=== PATIENT | female | born 1950 | race Caucasian/White ===

== ENCOUNTER 2017-11-10 21:44 | Inpatient (IN) | payer OTHER ==
[~2017-11-10] VITALS: Ht 157.5 cm; Wt 120.5 kg
[~2017-11-10 21:44] MED LIST: ACET325 PO; ALBU3IS INH; ALBU90OI; ALBU90OI INH; ALBU90OI6 INH; ALBU90OI61 INH; AMOCLA875 PO; ASCO500 PO; ASPERCREME76.5 GM; ATOR20 PO; ATOR40TA; ATOR40TA PO; AZIT200SU PO; AZIT250 PO; AZIT500 PO; B COMPLEX PO; BENZ100A PO; BUDE.5 NEB; CALCIUM CITRATE PO; CEFP200 PO; CHOL10002 PO; CLON.2 PO; CLON.3 PO; CYAN1000 PO; DIPATR PO; DOCU100 PO; DULERA 200 MCG/13 GM; DULERA 200 MCG/13 GM INH; DULO60 PO; DULOXETINE HCL60 MG PO; Enulose 2020 G/30 ML PO; FLUO20 PO; FLUSAL2505 INH; FURO40 PO; Flonase 0.05% N16 GM; GABA100 PO; GABA300; GABA300 PO; GABA600 PO; GUAI600T33 PO; IBUP800; IBUP800 PO; INSDET100 SC; LAVAP17G PO; LEVEMIR FL100 UNIT/1 SC; LEVFLO250 PO; LEVFLO500 PO; LEVO750 PO; LISI20; LISI20 PO; LOSA50 PO; MAGOXI400 PO; MECL12.5 PO; MECL25 PO; MELO7.5; METF500C PO; MULVITB&C PO; Mag-G500 MG PO; Milk Of Ma400 MG/5 M; Mucinex1200 MG PO; NICO14TP TOP; NICO2 PO; NICO21TP TD; NICO21TP TOP; NYST100TC TOP; NYSTOP; NYSTRI30T TOP; NYSTRITC; NYSTRITC TOP; Nicoderm Cq1 EAC1 TOP; Non-Aspirin Ex500 M1; Novolog Fl100 UNIT/1 INJ; OMEP40CA12 PO; OXYACE7.5T PO; OXYB5; OXYB5 PO; Omeprazole20 M1 PO; PANT40 PO; POTCHL10ER PO; POTCHL20ER PO; PRED10; PRED10 PO; PRED20 PO; PROBIOTIC1 EAC1 PO; PROM25 PO; Prednisone20 MG PO; Prilosec20 MG PO; SIME80CH PO; SODCHL.65S; TIOT18 IH; TIOT18 INH; TRAM50 PO; VERA120ERB; VERA180ER; VERA180ER PO; VERA180ERB PO; VERA240ER PO; VIT C PO; Ventolin Soln3 ML INH; [UNRECOGNIZED DRUG - CODE]
[2017-11-10 22:07] LABS: BASOPHILS ABSOLUTE AUTO 0.07 K/mm3 (0.00-0.23); BASOPHILS PERCENT AUTO 0 % (0-2); EOSINOPHILS ABSOLUTE AUTO 0.54 K/mm3 (0.00-0.68); EOSINOPHILS PERCENT AUTO 3 % (0-6); Hematocrit 45.3 % (33.0-51.0); Hemoglobin 13.5 g/dL (11.5-16.0); IMMATURE GRAN ABSOLUTE AUTO 0.07 K/mm3 (0.00-0.10); IMMATURE GRAN PERCENT AUTO 0 % (0-1); LYMPHOCYTES PERCENT AUTO 31 % (21-46); MONOCYTES ABSOLUTE AUTO 0.75 K/mm3 (0.16-1.47); MONOCYTES PERCENT AUTO 4 % (4-13); Mean Corpuscular HGB 27.9 pg (26.0-34.0); Mean Corpuscular HGB Conc 29.8 g/dL (31.5-36.5); Mean Corpuscular Volume 94 fL (80-100); Mean Platelet Volume 10.9 fL (9.1-12.4); NEUTROPHILS ABSOLUTE AUTO 11.09 K/mm3 (1.96-9.15); NEUTROPHILS PERCENT AUTO 62 % (41-73); Platelet Count 332 K/mm3 (150-400); RDW Coefficient Variation 15.8 % (11.7-14.2); RDW Standard Deviation 54.3 fL (35.1-46.3); Red Blood Cell Count 4.84 M/mm3 (3.80-5.20); White Blood Cell Count 18.02 K/mm3 (4.00-11.30)
[2017-11-10 22:26] LABS: Alanine Aminotransfer (ALT/SGP 12 U/L (12-78); Albumin, Blood 2.6 g/dL (3.4-5.0); Albumin/Globulin Ratio 0.4 (0.8-1.8); Alk Phos 113 U/L (50-136); Anion Gap 10 mmol/L (6-16); Aspartate Aminotrans (AST/SGOT 15 U/L (12-37); Bilirubin, Total 0.2 mg/dL (0.1-1.0); Blood Urea Nitrogen 10 mg/dL (8-24); Bun/Creatinine Ratio 13.1 (12.0-20.0); CO2, Blood 32 mmol/L (21-32); Calcium, Blood 7.1 mg/dL (8.5-10.1); Chloride, Blood 99 mmol/L (98-108); Creatinine, Blood 0.76 mg/dL (0.40-1.00); Globulin, Blood 6.3 g/dL (2.2-4.0); Glomerular Filtration Rate >60 (60-); Glucose, Blood 150 mg/dL (70-99); Potassium, Blood 3.7 mmol/L (3.5-5.5); Sodium, Blood 141 mmol/L (136-145); Total Protein, Blood 8.9 g/dL (6.4-8.2)
[2017-11-11 03:59] LABS: BASOPHILS ABSOLUTE AUTO 0.03 K/mm3 (0.00-0.23); BASOPHILS PERCENT AUTO 0 % (0-2); EOSINOPHILS PERCENT AUTO 0 % (0-6); Hematocrit 42.6 % (33.0-51.0); Hemoglobin 12.9 g/dL (11.5-16.0); Mean Corpuscular HGB 28.6 pg (26.0-34.0); Mean Corpuscular HGB Conc 30.3 g/dL (31.5-36.5); Mean Corpuscular Volume 95 fL (80-100); Mean Platelet Volume 11.1 fL (9.1-12.4); Platelet Count 299 K/mm3 (150-400); RDW Coefficient Variation 15.8 % (11.7-14.2); RDW Standard Deviation 54.7 fL (35.1-46.3); Red Blood Cell Count 4.51 M/mm3 (3.80-5.20); White Blood Cell Count 14.72 K/mm3 (4.00-11.30)
[2017-11-11 04:02] LABS: IMMATURE GRAN ABSOLUTE AUTO 0.06 K/mm3 (0.00-0.10); IMMATURE GRAN PERCENT AUTO 0 % (0-1); LYMPHOCYTES PERCENT AUTO 5 % (21-46); MONOCYTES ABSOLUTE AUTO 0.06 K/mm3 (0.16-1.47); MONOCYTES PERCENT AUTO 0 % (4-13); NEUTROPHILS ABSOLUTE AUTO 13.87 K/mm3 (1.96-9.15); NEUTROPHILS PERCENT AUTO 94 % (41-73)
[2017-11-11 04:16] LABS: Influenza A Negative (NEGATIVE); Influenza B Negative (NEGATIVE)
[2017-11-11 04:22] LABS: Alanine Aminotransfer (ALT/SGP 11 U/L (12-78); Albumin, Blood 2.5 g/dL (3.4-5.0); Albumin/Globulin Ratio 0.4 (0.8-1.8); Alk Phos 105 U/L (50-136); Anion Gap 7 mmol/L (6-16); Aspartate Aminotrans (AST/SGOT 14 U/L (12-37); Bilirubin, Total 0.3 mg/dL (0.1-1.0); Blood Urea Nitrogen 9 mg/dL (8-24); Bun/Creatinine Ratio 12.8 (12.0-20.0); CO2, Blood 31 mmol/L (21-32); Calcium, Blood 6.9 mg/dL (8.5-10.1); Chloride, Blood 102 mmol/L (98-108); Globulin, Blood 5.8 g/dL (2.2-4.0); Glomerular Filtration Rate >60 (60-); Glucose, Blood 172 mg/dL (70-99); Potassium, Blood 3.6 mmol/L (3.5-5.5); Sodium, Blood 140 mmol/L (136-145); Total Protein, Blood 8.3 g/dL (6.4-8.2)
[2017-11-14] MEDS ORDERED: OXYB5 PO (12:09)
[2017-11-15 06:33] LABS: BASOPHILS ABSOLUTE AUTO 0.01 K/mm3 (0.00-0.23); BASOPHILS PERCENT AUTO 0 % (0-2); EOSINOPHILS ABSOLUTE AUTO 0.04 K/mm3 (0.00-0.68); EOSINOPHILS PERCENT AUTO 0 % (0-6); Hematocrit 40.8 % (33.0-51.0); Hemoglobin 12.1 g/dL (11.5-16.0); IMMATURE GRAN ABSOLUTE AUTO 0.11 K/mm3 (0.00-0.10); IMMATURE GRAN PERCENT AUTO 1 % (0-1); LYMPHOCYTES ABSOLUTE AUTO 3.35 K/mm3 (0.84-5.20); LYMPHOCYTES PERCENT AUTO 26 % (21-46); MONOCYTES ABSOLUTE AUTO 0.95 K/mm3 (0.16-1.47); MONOCYTES PERCENT AUTO 7 % (4-13); Mean Corpuscular HGB Conc 29.7 g/dL (31.5-36.5); Mean Corpuscular Volume 94 fL (80-100); Mean Platelet Volume 10.7 fL (9.1-12.4); NEUTROPHILS ABSOLUTE AUTO 8.45 K/mm3 (1.96-9.15); NEUTROPHILS PERCENT AUTO 65 % (41-73); Platelet Count 251 K/mm3 (150-400); RDW Coefficient Variation 16.1 % (11.7-14.2); RDW Standard Deviation 56.8 fL (35.1-46.3); Red Blood Cell Count 4.32 M/mm3 (3.80-5.20); White Blood Cell Count 12.91 K/mm3 (4.00-11.30)
[2017-11-15 06:57] LABS: Albumin, Blood 2.3 g/dL (3.4-5.0); Anion Gap 2 mmol/L (6-16); Blood Urea Nitrogen 17 mg/dL (8-24); Bun/Creatinine Ratio 23.7 (12.0-20.0); CO2, Blood 38 mmol/L (21-32); Chloride, Blood 102 mmol/L (98-108); Creatinine, Blood 0.72 mg/dL (0.40-1.00); Glomerular Filtration Rate >60 (60-); Glucose, Blood 80 mg/dL (70-99); Magnesium, Blood 1.5 mg/dL (1.6-2.4); Phosphorus, Blood 2.5 mg/dL (2.5-4.9); Potassium, Blood 3.9 mmol/L (3.5-5.5); Sodium, Blood 142 mmol/L (136-145)
[2017-11-17] MEDS ORDERED: PRED20 PO (10:40)
[2017-11-17] MEDS ORDERED: VERA180ER PO (10:42)
[2017-11-17] MEDS ORDERED: TRAM50 PO (10:42)
[2017-11-17] MEDS ORDERED: GUAI600T33 PO (10:43)
[2017-11-17] MEDS ORDERED: FLONASE ALLERG9.9 ML (10:48)
[2017-11-17] MEDS ORDERED: ACIDOPHILUS LA1 EACH PO (10:49)
[2017-11-17] MEDS ORDERED: MAGNESIUM400 MG PO (10:50)
[2017-11-17] MEDS ORDERED: LEVFLO500 PO (10:50)
== END 2017-11-17 11:59 | disposition home health service (06) | DRG 189 ==
LOC: ER 21:44 → ICUW 23:32 → MEDS 11-11 01:24 → ICUW 11-11 08:40 → MEDS 11-11 12:57 → ENPENDDIS 11-17 10:00 → MEDS 11-17 11:59
PROVIDERS: Emergency Medicine; Internal Medicine
DX: J96.22 Acute and chronic respiratory failure with hypercapnia (principal); J44.1 Chronic obstructive pulmonary disease with (acute) exacerbation; Z68.42 Body mass index [BMI] 45.0-49.9, adult; J96.21 Acute and chronic respiratory failure with hypoxia; E11.9 Type 2 diabetes mellitus without complications; I10 Essential (primary) hypertension; G47.33 Obstructive sleep apnea (adult) (pediatric); I27.20 Pulmonary hypertension, unspecified; E66.01 Morbid (severe) obesity due to excess calories; F17.210 Nicotine dependence, cigarettes, uncomplicated
CPT/HCPCS: 36415; 71045; 71250; 80053; 80069; 82947; 83605; 83735; 83880; 84145; 85025; 87040; 87070; 87077; 87186; 87205; 87804; 93005; 93010; 94640; 94760; 94762; 96365; 96367; 96375; 97161; 97530; 99285; G8978; G8979; G8980; J0456; J0696; J1650; J1940; J1956; J2930; J7030; J7050

== ENCOUNTER 2018-07-23 18:29 | Observation (INO) | payer OTHER ==
[~2018-07-23] VITALS: Ht 160 cm; Wt 119.1 kg
[~2018-07-23 18:29] MED LIST changes: +ACIDOPHILUS LA1 EACH PO; +ACYC800 PO; +ALPR.25 PO; +AMOCLA500 PO; +AUGMENTIN PO; +BISA10S PR; +Culturelle1 CAP PO; +DEEP SEA44 ML; +FLONASE ALLERG9.9 ML; +HYDR10 PO; +MAGNESIUM400 MG PO; +ONDA4 PO; +ONDA4ODT MM; -POTCHL10ER PO; +Pedi-Dri 100,0060 GM TOP; +Ventolin/Prove6.7 GM INH
[2018-07-23 19:23] LABS: BASOPHILS ABSOLUTE AUTO 0.08 K/mm3 (0.00-0.23); BASOPHILS PERCENT AUTO 1 % (0-2); EOSINOPHILS ABSOLUTE AUTO 0.19 K/mm3 (0.00-0.68); EOSINOPHILS PERCENT AUTO 1 % (0-6); Hematocrit 49.9 % (33.0-51.0); Hemoglobin 14.9 g/dL (11.5-16.0); IMMATURE GRAN ABSOLUTE AUTO 0.08 K/mm3 (0.00-0.10); IMMATURE GRAN PERCENT AUTO 1 % (0-1); LYMPHOCYTES ABSOLUTE AUTO 4.39 K/mm3 (0.84-5.20); LYMPHOCYTES PERCENT AUTO 25 % (21-46); MONOCYTES ABSOLUTE AUTO 0.95 K/mm3 (0.16-1.47); MONOCYTES PERCENT AUTO 5 % (4-13); Mean Corpuscular HGB Conc 29.9 g/dL (31.5-36.5); Mean Corpuscular Volume 97 fL (80-100); Mean Platelet Volume 10.6 fL (9.1-12.4); NEUTROPHILS ABSOLUTE AUTO 11.96 K/mm3 (1.96-9.15); NEUTROPHILS PERCENT AUTO 68 % (41-73); Platelet Count 286 K/mm3 (150-400); RDW Coefficient Variation 15.2 % (11.7-14.2); RDW Standard Deviation 54.3 fL (35.1-46.3); Red Blood Cell Count 5.13 M/mm3 (3.80-5.20); White Blood Cell Count 17.65 K/mm3 (4.00-11.30)
[2018-07-23 19:41] LABS: Alanine Aminotransfer (ALT/SGP 13 U/L (12-78); Albumin, Blood 3.1 g/dL (3.4-5.0); Albumin/Globulin Ratio 0.6 (0.8-1.8); Alk Phos 114 U/L (50-136); Anion Gap 7 mmol/L (6-16); Aspartate Aminotrans (AST/SGOT 17 U/L (12-37); Bilirubin, Total 0.3 mg/dL (0.1-1.0); Blood Urea Nitrogen 10 mg/dL (8-24); Bun/Creatinine Ratio 12.1 (12.0-20.0); CO2, Blood 33 mmol/L (21-32); Calcium, Blood 8.9 mg/dL (8.5-10.1); Chloride, Blood 97 mmol/L (98-108); Creatinine, Blood 0.82 mg/dL (0.40-1.00); Glomerular Filtration Rate >60 (60-); Glucose, Blood 119 mg/dL (70-99); Sodium, Blood 137 mmol/L (136-145); Total Protein, Blood 8.1 g/dL (6.4-8.2); Troponin I 0.029 ng/mL (0.000-0.040)
[2018-07-23 20:32] LABS: PCO2 Arterial 62.1 mmHg (35-45); PO2 Arterial 59.7 mmHg (80-100); pH Blood Arterial 7.38 (7.35-7.45)
[2018-07-23] MEDS ORDERED: GUAI600T33 PO (22:39)
[2018-07-23] MEDS ORDERED: DOXY100T53 PO (22:40)
[2018-07-23] MEDS ORDERED: GABA300 PO (22:42)
[2018-07-23] MEDS ORDERED: FURO40 PO (22:43)
--- NOTE | 2018-07-24 01:50 | NUR ---
LACTIC OF 2.4: DR STRATTON NOTIFIED OF LACTIC LEVEL. DR STRATTON STATED HE WOULD REVIEW THE PATIENT'S CHART AND ENTER ORDERS IF HE FELT THEY WERE NEEDED.
[2018-07-24 04:14] LABS: Hematocrit 49.1 % (33.0-51.0); Hemoglobin 14.2 g/dL (11.5-16.0); Mean Corpuscular HGB 28.6 pg (26.0-34.0); Mean Corpuscular HGB Conc 28.9 g/dL (31.5-36.5); Mean Corpuscular Volume 99 fL (80-100); Mean Platelet Volume 10.3 fL (9.1-12.4); Platelet Count 254 K/mm3 (150-400); RDW Coefficient Variation 15.2 % (11.7-14.2); Red Blood Cell Count 4.97 M/mm3 (3.80-5.20); White Blood Cell Count 10.23 K/mm3 (4.00-11.30)
[2018-07-24 04:21] LABS: Anion Gap 8 mmol/L (6-16); Blood Urea Nitrogen 14 mg/dL (8-24); Bun/Creatinine Ratio 16.2 (12.0-20.0); CO2, Blood 33 mmol/L (21-32); Calcium, Blood 8.9 mg/dL (8.5-10.1); Chloride, Blood 99 mmol/L (98-108); Creatinine, Blood 0.87 mg/dL (0.40-1.00); Glomerular Filtration Rate >60 (60-); Glucose, Blood 148 mg/dL (70-99); Potassium, Blood 3.9 mmol/L (3.5-5.5); Sodium, Blood 140 mmol/L (136-145)
--- NOTE | 2018-07-24 06:24 | NUR ---
LACTIC OF 2.5: DR STRATTON NOTIFIED OF THE LACTIC OF 2.5 THIS MORNING. NO ORDERS GIVEN AT THIS TIME.
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
[2018-07-24] MEDS ORDERED: ATOR10 PO (08:05)
[2018-07-24] MEDS ORDERED: Voltaren100 GM TOP (08:08)
[2018-07-24] MEDS ORDERED: DULO60 PO (08:12)
[2018-07-24] MEDS ORDERED: NYSTRITC TOP (08:13)
[2018-07-24] MEDS ORDERED: OMEPRAZOLE MAGN20 MG PO (08:14)
[2018-07-24] MEDS ORDERED: SANTYL30 GM TOP (08:19)
[2018-07-24] MEDS ORDERED: CLOBET30L TOP (08:22)
[2018-07-24] MEDS ORDERED: Silvadene20 GM TOP (08:24)
--- NOTE | 2018-07-24 09:30 | NUR ---
PT PLEASANT COOP A.O. PAIN IN LEG AND BACK IS SAME, JUST MEDICATED ON NITE SHIFT. WILL FOLLOW. H/R REG, NO MURMER NOTED. PER TELE NSR WITH PAC'S AND PVC'S, RATE MID 90'S TO 102 LUNGS INSP WHEEZES WITH LIGHT COARSE T/O. ON 6L O2. N/C. TALKING 5-6 WORD SENTENCES AT THIS TIME. RESP LIGHTLY LABORED. BT X4 LAST BM YEST SOFT. VOIDS 1 ASST TO BATHROOM. BED IN LOW POSITOIN, CALL LITE IN REACH, CALLS APPROP
--- NOTE | 2018-07-24 15:04 | NUR ---
CALLED REPORT TO MEDICAL RN. WILL SHIP PT SHORTLY
--- NOTE | 2018-07-24 16:01 | NUR ---
PT HAS Gregory WALKER RESTING FOR THIS AFT. JUST GOT UP FOR PT. SHE GOT IN DISTRESS CALLED RT. AND CHARGE. BREATHING TREATMENT GIVEN. MOVED O2 TO MOUTH FOR SHORT TIME. RESPIRATIONS ARE CALMING DOWN NOW. XANAX GIVEN. PT BEGINNING TO RELAX. SITTING IN WHEELCHAIR AT THIS TIME. PT RESP NOW AT 20.
--- NOTE | 2018-07-24 16:56 | NUR ---
PATIENT TRANSFERRED TO ROOM 362. REPORT RECEIVED FROM JANETH VILLALBA IN PCU. PATIENT IS A/OX4, TRANSFERRED TO FROM W/C TO BED WITH 2 ASSIST. 6LO2 TO MAINTAIN SATS. REPORTS 10/10 PAIN TO R FOOT, MEDICATED WITH TRAMADOL. CBG 155, NO COVERAGE NEEDED. ORIENTED TO ROOM, USE OF CALL LIGHT. FALL PRECAUTIONS IN PLACE PER UNIT PROTOCOL AND PATIENT EDUCATED ABOUT SAFETY.
[2018-07-24 21:28] LABS: Adenovirus Not Detected (NOT DETECT); Bordetella pertussis Not Detected (NOT DETECT); Chlamydophila pneumoniae Not Detected (NOT DETECT); Coronavirus 229E Not Detected (NOT DETECT); Coronavirus HKU1 Not Detected (NOT DETECT); Coronavirus NL63 Not Detected (NOT DETECT); Coronavirus OC43 Not Detected (NOT DETECT); Human Metapneumovirus Not Detected (NOT DETECT); Human Rhinovirus/Enterovirus Not Detected (NOT DETECT); Influenza A Not Detected (NOT DETECT); Influenza A/2009-H1 Not Detected (NOT DETECT); Influenza A/H1 Not Detected (NOT DETECT); Influenza A/H3 Not Detected (NOT DETECT); Influenza B Not Detected (NOT DETECT); Mycoplasma pneumoniae Not Detected (NOT DETECT); Parainfluenza Virus 1 Not Detected (NOT DETECT); Parainfluenza Virus 2 Not Detected (NOT DETECT); Parainfluenza Virus 3 Not Detected (NOT DETECT); Parainfluenza Virus 4 Not Detected (NOT DETECT); Respiratory Syncytial Virus Not Detected (NOT DETECT)
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
--- NOTE | 2018-07-25 13:44 | NUR ---
Reviewed patient case with [facility]. Discussed difficult living situation: pt lives in 19 foot RV in [place], still smokes even though she has COPD. He states that the patient is very high risk for readmission due to lifestyle and resistence to changing lifestyle to be a healthier individual. Concern for patient's return to the hospital for same complaints noted.
--- NOTE | 2018-07-25 15:55 | NUR ---
PATIENT D/C'D HOMW WITH [employer]. PAPERS FAXED TO [employer]. D/C INSTRUCTIONS AND EDUCATION DISCUSSED WITH PATIENT AND COPY PROVIDED. RX MEDICATIONS FAXED TO [facility] IN [place]. SCRIPT GIVEN FOR BSC AT PATIENT REQUEST.
== END 2018-07-25 15:57 | disposition home or self-care (01) ==
LOC: ER 18:29 → PCU 21:13 → MEDS 21:13 → PCU 21:49 → MEDS 07-24 16:31 → ENPENDDIS 07-25 11:36 → MEDS 07-25 15:57
PROVIDERS: Emergency Medicine; Hospitalist; Nurse Practitioner Acute Care; ADMIT Internal Medicine
DX: J44.1 Chronic obstructive pulmonary disease with (acute) exacerbation (principal); R65.20 Severe sepsis without septic shock; J96.21 Acute and chronic respiratory failure with hypoxia; E11.621 Type 2 diabetes mellitus with foot ulcer; L97.519 Non-pressure chronic ulcer of other part of right foot with unspecified severity; I10 Essential (primary) hypertension; J84.9 Interstitial pulmonary disease, unspecified; F41.9 Anxiety disorder, unspecified; F32.9 Major depressive disorder, single episode, unspecified; E66.01 Morbid (severe) obesity due to excess calories; I27.20 Pulmonary hypertension, unspecified; G47.33 Obstructive sleep apnea (adult) (pediatric); J96.12 Chronic respiratory failure with hypercapnia; E11.40 Type 2 diabetes mellitus with diabetic neuropathy, unspecified; K21.9 Gastro-esophageal reflux disease without esophagitis; E78.5 Hyperlipidemia, unspecified; M19.90 Unspecified osteoarthritis, unspecified site; F17.210 Nicotine dependence, cigarettes, uncomplicated; Z99.81 Dependence on supplemental oxygen; Z99.89 Dependence on other enabling machines and devices; Z79.899 Other long term (current) drug therapy; Z79.52 Long term (current) use of systemic steroids; Z79.4 Long term (current) use of insulin; Z88.8 Allergy status to other drugs, medicaments and biological substances; Z68.42 Body mass index [BMI] 45.0-49.9, adult; A41.9 Sepsis, unspecified organism
CPT/HCPCS: 36415; 36600; 71046; 80048; 80053; 82803; 82947; 83605; 83880; 84145; 84484; 85025; 85027; 87040; 87486; 87581; 87633; 87798; 93005; 93010; 94640; 94760; 96365; 96372; 96375; 97163; 97530; 99285-25; G0378; J1100; J1650; J1956; J2930

== ENCOUNTER 2018-07-26 10:43 | Inpatient (IN) | payer OTHER ==
[~2018-07-26] VITALS: Ht 157.5 cm; Wt 119.5 kg
[~2018-07-26 10:43] MED LIST changes: +ATOR10 PO; +CLOBET30L TOP; +DOXY100T53 PO; +OMEPRAZOLE MAGN20 MG PO; +SANTYL30 GM TOP; +Silvadene20 GM TOP; +Voltaren100 GM TOP
[2018-07-26 11:22] LABS: BASOPHILS ABSOLUTE AUTO 0.03 K/mm3 (0.00-0.23); BASOPHILS PERCENT AUTO 0 % (0-2); EOSINOPHILS ABSOLUTE AUTO 0.03 K/mm3 (0.00-0.68); EOSINOPHILS PERCENT AUTO 0 % (0-6); Hematocrit 46.4 % (33.0-51.0); Hemoglobin 13.9 g/dL (11.5-16.0); IMMATURE GRAN ABSOLUTE AUTO 0.09 K/mm3 (0.00-0.10); IMMATURE GRAN PERCENT AUTO 1 % (0-1); LYMPHOCYTES ABSOLUTE AUTO 3.82 K/mm3 (0.84-5.20); LYMPHOCYTES PERCENT AUTO 22 % (21-46); MONOCYTES ABSOLUTE AUTO 1.21 K/mm3 (0.16-1.47); MONOCYTES PERCENT AUTO 7 % (4-13); Mean Corpuscular HGB 28.8 pg (26.0-34.0); Mean Platelet Volume 10.8 fL (9.1-12.4); NEUTROPHILS ABSOLUTE AUTO 12.21 K/mm3 (1.96-9.15); NEUTROPHILS PERCENT AUTO 70 % (41-73); Platelet Count 305 K/mm3 (150-400); RDW Coefficient Variation 15.8 % (11.7-14.2); RDW Standard Deviation 55.8 fL (35.1-46.3); Red Blood Cell Count 4.83 M/mm3 (3.80-5.20); White Blood Cell Count 17.39 K/mm3 (4.00-11.30)
[2018-07-26 11:35] LABS: Alanine Aminotransfer (ALT/SGP 12 U/L (12-78); Albumin, Blood 2.9 g/dL (3.4-5.0); Albumin/Globulin Ratio 0.6 (0.8-1.8); Alk Phos 103 U/L (50-136); Anion Gap 6 mmol/L (6-16); Aspartate Aminotrans (AST/SGOT 18 U/L (12-37); Bilirubin, Total 0.5 mg/dL (0.1-1.0); Blood Urea Nitrogen 22 mg/dL (8-24); Bun/Creatinine Ratio 25.3 (12.0-20.0); CO2, Blood 33 mmol/L (21-32); Calcium, Blood 8.9 mg/dL (8.5-10.1); Chloride, Blood 102 mmol/L (98-108); Creatinine, Blood 0.87 mg/dL (0.40-1.00); Globulin, Blood 4.5 g/dL (2.2-4.0); Glomerular Filtration Rate >60 (60-); Glucose, Blood 113 mg/dL (70-99); Potassium, Blood 3.9 mmol/L (3.5-5.5); Sodium, Blood 141 mmol/L (136-145); Total Protein, Blood 7.4 g/dL (6.4-8.2); Troponin I 0.078 ng/mL (0.000-0.040)
[2018-07-26 11:38] LABS: Mean Corpuscular Volume 96 fL (80-100)
--- NOTE | 2018-07-26 15:30 | NUR ---
PT WEARING HARD BOOT TO RIGHT FOOT THAT MOBILE ELECTRONICS INSTALLER IS MANAGING. DISCUSSED WITH DR MILLER AND OINTMENTS DISCONTINUED UNTIL PODIATRY ABLE TO SEE PT.
[2018-07-26 15:54] LABS: Troponin I 0.072 ng/mL (0.000-0.040)
[2018-07-26 15:57] LABS: Thyroid Stimulating Hormone 0.95 uIU/mL (0.360-4.800)
[2018-07-26 16:44] LABS: Influenza A Negative (NEGATIVE); Influenza B Negative (NEGATIVE)
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
--- NOTE | 2018-07-27 05:43 | NUR ---
SHIFT SUMMARY: PT IS ALERT AND ORIENTED. PT ANXIOUS AT THE START OF SHIFT, GAVE PRN XANAX. PT IS A 2 PERSON ASSIST, NOT OUT OF BED OVERNIGHT, USED THE BED LAKE. PT INTERMITTENTLY SOB, O2 @ 7 L VIA OXIMIZER, RESP TREATMENTS PRN. PT REPORTS BACK PAIN, MEDICATING PER EMAR. PT DENIES NAUSEA AND VOMITING. PT CALLS APPROPRIATELY. PT OUT TO HAVE CHEST XRAY THIS AM. NO ACUTE CHANGES OVERNIGHT. WILL REPORT TO DAY NURSE.
[2018-07-27 08:12] LABS: BASOPHILS ABSOLUTE AUTO 0.02 K/mm3 (0.00-0.23); BASOPHILS PERCENT AUTO 0 % (0-2); EOSINOPHILS PERCENT AUTO 0 % (0-6); Hematocrit 44.6 % (33.0-51.0); Hemoglobin 12.5 g/dL (11.5-16.0); IMMATURE GRAN ABSOLUTE AUTO 0.14 K/mm3 (0.00-0.10); IMMATURE GRAN PERCENT AUTO 1 % (0-1); LYMPHOCYTES ABSOLUTE AUTO 1.26 K/mm3 (0.84-5.20); LYMPHOCYTES PERCENT AUTO 8 % (21-46); MONOCYTES ABSOLUTE AUTO 0.64 K/mm3 (0.16-1.47); MONOCYTES PERCENT AUTO 4 % (4-13); Mean Corpuscular HGB 28.8 pg (26.0-34.0); Mean Platelet Volume 10.5 fL (9.1-12.4); NEUTROPHILS ABSOLUTE AUTO 12.89 K/mm3 (1.96-9.15); NEUTROPHILS PERCENT AUTO 86 % (41-73); Platelet Count 237 K/mm3 (150-400); RDW Coefficient Variation 15.8 % (11.7-14.2); RDW Standard Deviation 60.6 fL (35.1-46.3); Red Blood Cell Count 4.34 M/mm3 (3.80-5.20); White Blood Cell Count 14.95 K/mm3 (4.00-11.30)
[2018-07-27 08:13] LABS: Mean Corpuscular Volume 103 fL (80-100)
[2018-07-27 08:27] LABS: Anion Gap 4 mmol/L (6-16); Blood Urea Nitrogen 15 mg/dL (8-24); Bun/Creatinine Ratio 24.3 (12.0-20.0); CO2, Blood 32 mmol/L (21-32); Calcium, Blood 7.8 mg/dL (8.5-10.1); Chloride, Blood 106 mmol/L (98-108); Creatinine, Blood 0.62 mg/dL (0.40-1.00); Glomerular Filtration Rate >60 (60-); Glucose, Blood 127 mg/dL (70-99); Potassium, Blood 4.6 mmol/L (3.5-5.5); Sodium, Blood 142 mmol/L (136-145)
[2018-07-27 14:30] LABS: Vancomycin, Trough 15.2 ug/mL (5.0-10.0)
--- NOTE | 2018-07-27 18:40 | NUR ---
SHIFT SUMMARY- PT C/O GENERALIZED PAIN THIS AM. MEDS GIVEN PER EMAR. PT DENIES N/V. REPORTS MILD SOB AT REST DYSPNEA UPON ACTIVITY. RESP LABORED AND EVEN ON 8L O2 OXIMIZER. NSR AT 84 PER PCU CRIMINAL JUSTICE FACULTY. BEDREST AT THIS TIME. TURNS Q2H. CARBONATION EQUIPMENT TENDER CALLED AND SAID TO LEAVE PT'S CAST ON, THAT THE CAST IS TO BE REMOVED IN HIS OFFICE AFTER SHE D/C FROM HOSPITAL. NO OTHER SIGNIFICANT CHANGES THIS SHIFT.
--- NOTE | 2018-07-28 05:04 | NUR ---
SHIFT SUMMARY A/O X3, ABLE TO MAKE NEEDS KNOWN. COOPERATIVE WITH CARE. CALLS AND ANSWERS QUESTIONS APPROPRIATELY. STATED PAIN/DISCOMFORT TO BILATERAL HIPS AND R FLANK RATED 8/10; MEDICATED PER EMAR. ALSO REQUESTION MEDICATION FOR ANXIETY. TELE RUNNING NSR @ 71 PER PCU CLINICAL RESEARCH SPECIALIST. REMAINS ON 7L VIA OXYMIZER WITH CONTINUOUS BIOX. NO ACUTE CHANGES OVERNIHGT. VSS/AFEBRILE. UP WITH 1 ASSIST TO BSC. BED IN LOWEST POSITION. CALL LIGHT IN REACH. WCTM. REPORT TO ONCOMING RN.
[2018-07-28 09:04] LABS: BASOPHILS ABSOLUTE AUTO 0.02 K/mm3 (0.00-0.23); BASOPHILS PERCENT AUTO 0 % (0-2); EOSINOPHILS ABSOLUTE AUTO 0.08 K/mm3 (0.00-0.68); EOSINOPHILS PERCENT AUTO 1 % (0-6); Hematocrit 43.7 % (33.0-51.0); Hemoglobin 12.6 g/dL (11.5-16.0); IMMATURE GRAN ABSOLUTE AUTO 0.08 K/mm3 (0.00-0.10); IMMATURE GRAN PERCENT AUTO 1 % (0-1); LYMPHOCYTES ABSOLUTE AUTO 2.83 K/mm3 (0.84-5.20); LYMPHOCYTES PERCENT AUTO 19 % (21-46); MONOCYTES ABSOLUTE AUTO 0.99 K/mm3 (0.16-1.47); MONOCYTES PERCENT AUTO 7 % (4-13); Mean Corpuscular HGB 28.8 pg (26.0-34.0); Mean Corpuscular HGB Conc 28.8 g/dL (31.5-36.5); Mean Platelet Volume 10.9 fL (9.1-12.4); NEUTROPHILS ABSOLUTE AUTO 10.76 K/mm3 (1.96-9.15); NEUTROPHILS PERCENT AUTO 73 % (41-73); Platelet Count 218 K/mm3 (150-400); RDW Coefficient Variation 15.6 % (11.7-14.2); RDW Standard Deviation 58.2 fL (35.1-46.3); Red Blood Cell Count 4.37 M/mm3 (3.80-5.20); White Blood Cell Count 14.76 K/mm3 (4.00-11.30)
[2018-07-28 09:23] LABS: Albumin, Blood 2.6 g/dL (3.4-5.0); Anion Gap 3 mmol/L (6-16); Blood Urea Nitrogen 17 mg/dL (8-24); Bun/Creatinine Ratio 24.8 (12.0-20.0); CO2, Blood 37 mmol/L (21-32); Calcium, Blood 8.2 mg/dL (8.5-10.1); Chloride, Blood 103 mmol/L (98-108); Creatinine, Blood 0.69 mg/dL (0.40-1.00); Glomerular Filtration Rate >60 (60-); Glucose, Blood 92 mg/dL (70-99); Phosphorus, Blood 2.4 mg/dL (2.5-4.9); Potassium, Blood 3.8 mmol/L (3.5-5.5); Sodium, Blood 143 mmol/L (136-145)
[2018-07-28 09:27] LABS: Mean Corpuscular Volume 100 fL (80-100)
--- NOTE | 2018-07-28 13:41 | NUR ---
Pt gave me verbal permission to help care for her on 07/29/18
--- NOTE | 2018-07-28 18:32 | NUR ---
ATTENDS AND LINEN CHANGED AFTER VERY SATURATED ATTENDS AND WHITE INCONTINENT PADS REMOVED.
--- NOTE | 2018-07-28 18:48 | NUR ---
SHIFT SUMMARY OX3. 2 ASSIST TO RECLINER. ABLE TO USE BSC AT TIMES. INTERMITTENTLY INCONTINENT. MULTIPLE WET PADS/ATTENDS/CHUX. PLESANT. EATING AND DRINKING WELL. LASIX. HEPARIN FOR DVT PREVENTITIVE.
[2018-07-29 04:45] LABS: BASOPHILS ABSOLUTE AUTO 0.03 K/mm3 (0.00-0.23); BASOPHILS PERCENT AUTO 0 % (0-2); EOSINOPHILS PERCENT AUTO 3 % (0-6); Hematocrit 45.5 % (33.0-51.0); Hemoglobin 13.3 g/dL (11.5-16.0); IMMATURE GRAN ABSOLUTE AUTO 0.08 K/mm3 (0.00-0.10); IMMATURE GRAN PERCENT AUTO 1 % (0-1); LYMPHOCYTES ABSOLUTE AUTO 2.96 K/mm3 (0.84-5.20); LYMPHOCYTES PERCENT AUTO 22 % (21-46); MONOCYTES ABSOLUTE AUTO 0.84 K/mm3 (0.16-1.47); MONOCYTES PERCENT AUTO 6 % (4-13); Mean Corpuscular HGB 29.3 pg (26.0-34.0); Mean Corpuscular HGB Conc 29.2 g/dL (31.5-36.5); Mean Corpuscular Volume 100 fL (80-100); Mean Platelet Volume 11.6 fL (9.1-12.4); NEUTROPHILS ABSOLUTE AUTO 9.38 K/mm3 (1.96-9.15); NEUTROPHILS PERCENT AUTO 69 % (41-73); NRBC ABSOLUTE 0.03 K/mm3 (0.00-0.02); NRBC Auto 0.2 /100 WBC (0.0-0.2); Platelet Count 263 K/mm3 (150-400); RDW Coefficient Variation 15.6 % (11.7-14.2); RDW Standard Deviation 58.5 fL (35.1-46.3); Red Blood Cell Count 4.54 M/mm3 (3.80-5.20); White Blood Cell Count 13.69 K/mm3 (4.00-11.30)
[2018-07-29 05:03] LABS: Anion Gap 2 mmol/L (6-16); Blood Urea Nitrogen 16 mg/dL (8-24); Bun/Creatinine Ratio 22.3 (12.0-20.0); CO2, Blood 43 mmol/L (21-32); Chloride, Blood 98 mmol/L (98-108); Creatinine, Blood 0.72 mg/dL (0.40-1.00); Glomerular Filtration Rate >60 (60-); Glucose, Blood 90 mg/dL (70-99); Potassium, Blood 3.7 mmol/L (3.5-5.5); Sodium, Blood 143 mmol/L (136-145)
--- NOTE | 2018-07-29 07:35 | NUR ---
down for scan this am, required pain medication when returned medication brought down from a 10 to a 7, also repositioned, walking rounds completed with day staff, call light in reach saline locked, 5L via nc, oximeter attached
--- NOTE | 2018-07-29 10:06 | NUR ---
PT'S IV INFILTRATED REDDNESS NOTED TO SITE. IV ANTIBIOTICS ARE DELAYED. ATTEMPTING ACCESS WITH ULTRASOUND AT THIS TIME. INFORMED.
--- NOTE | 2018-07-29 10:07 | NUR ---
ATTEMPTED PERIPHERAL IV X2 CHARGE NURSE NOTIFIED TO ATTTEMPT IV.
[2018-07-29 14:52] LABS: Vancomycin, Trough 19.5 ug/mL (5.0-10.0)
--- NOTE | 2018-07-29 14:56 | NUR ---
SPOKE WITH DR. EDELMIRA BUSTILLO OFFICE ABOUT PT'S CAST AND BOOT. DR. AVILA WOULD LIKE PATIENT TO KEEP THE CAST IN PLACE UNTIL DISCHARGE. REPORTED TO DR. MILLER.
--- NOTE | 2018-07-29 19:12 | NUR ---
SHIFT SUMMARY OX3; PLEASANT; TRANSFERS TO CHAIR FROM BED STANDBY ASSIST. POWERGLIDE PLACED TODAY. SPOKE WITH CLARA BUSTILLO OFFICE TODAY DR. AVILA WOULD LIKE CAST LEFT IN PLACE UNTIL PT IS DISCHARGED AND CAN FOLLOW UP WITH HIM. MEDICATED FOR LOWER BACK PAIN. EATING AND DRINKING WELL. CONTINENT VS INCONTINENCE. ATTENDS IN PLACE. ABLE TO USE BSC AT TIMES. 02 5-6L NC. CONTINUOUS BIOX.
--- NOTE | 2018-07-30 05:19 | NUR ---
SHIFT SUMMARY THE PATIENT PRESNTED THIS WITH VITALS WNL, A&O X4 AND WITH LUNGS THAT WERE NOISY, WITH EXPIRATIONAL RHONCHI AND WERE DIM IN THE BASES. THE PATIENT WAS UP UNTIL MIDSHIFT AND THEN SEEM TO SLEEP THROUGH ALL ELSE. THE PATIENT CONTINUES ON OXYGEN AT 6 LITERS. THE PATIENT IS RESTING AT THIS TIME, WILL CONTINUE TO MONITOR.
[2018-07-30 05:34] LABS: BASOPHILS ABSOLUTE AUTO 0.03 K/mm3 (0.00-0.23); BASOPHILS PERCENT AUTO 0 % (0-2); EOSINOPHILS ABSOLUTE AUTO 0.48 K/mm3 (0.00-0.68); EOSINOPHILS PERCENT AUTO 3 % (0-6); Hematocrit 43.7 % (33.0-51.0); Hemoglobin 12.7 g/dL (11.5-16.0); IMMATURE GRAN PERCENT AUTO 1 % (0-1); LYMPHOCYTES PERCENT AUTO 23 % (21-46); MONOCYTES ABSOLUTE AUTO 0.89 K/mm3 (0.16-1.47); MONOCYTES PERCENT AUTO 6 % (4-13); Mean Corpuscular HGB 29.2 pg (26.0-34.0); Mean Corpuscular HGB Conc 29.1 g/dL (31.5-36.5); Mean Corpuscular Volume 101 fL (80-100); Mean Platelet Volume 11.2 fL (9.1-12.4); NEUTROPHILS ABSOLUTE AUTO 9.78 K/mm3 (1.96-9.15); NEUTROPHILS PERCENT AUTO 67 % (41-73); Platelet Count 236 K/mm3 (150-400); RDW Coefficient Variation 15.2 % (11.7-14.2); RDW Standard Deviation 57.6 fL (35.1-46.3); Red Blood Cell Count 4.35 M/mm3 (3.80-5.20); White Blood Cell Count 14.68 K/mm3 (4.00-11.30)
--- NOTE | 2018-07-30 14:05 | NUR ---
Initial Visit: Palliative Care Consult for goals of care. Pt is A&O and reports 8/10 pain in her back, shoulder, and knee. She reports current regimen is managing her pain. Friend of Pt Beth is present and is considered family as stated by Pt. Pt states that she believes in God but does not attend cheondoism. Pt also reports 5/7 anxiety and 5/7 dyspnea. She reports increased dyspnea with exertion. Engaged in therapeutic conversation about goals of care including managing dyspnea, anxiety, and pain. Educated Pt on the cascading effect of anxiety with pain and dyspnea. Pt is agreeable with taking xanax which is available on the emar to help manage symptoms. Pt is agreeable to the high risk readmission program for COPD. She reports recieving care through [facility] and the COPD program would allow extra support in her recovery. Pt is anxious to be wheeled outside and visit ended. Spoke with Pt's nurse Carolyn about Pt's pain management and anxiety. Carolyn is agreeable to offering xanax for anxiety and offering Tordol for pain. Pt does not have hydrocodone as a home med and Pt reports she takes Tylenol to manage her pain. Carolyn also reports concerns for Pt at home and ability to care for her self. She would like clinical social worker to address these concerns and determine if placement to a higher level of care is appropriate. Plan is to remain available for symptom management. Will place social service consult adressing nurse's concerns. Contacted COPD education and reported Pt's interest in the high risk readmission program.
--- NOTE | 2018-07-30 14:52 | NUR ---
Provided prayer, theraputic listening and benefits counselor to Justin. She lives in a small camper, and admits she is not managing well on her own. She has a care-staple side laster, but plans on firing her for lack of service. She admits she is worried about dying. Justin is willing to learn about care options; foster-care, facility. She was talkative and appreciaitive of emotional affirmation. We prayed together for help and healing at her request. Informed RN of potential discharge needs. I will remain available.
--- NOTE | 2018-07-30 16:20 | NUR ---
SHIFT SUMMARY NO ACUTE CHANGES. PATIENT WORKED WITH OT TODAY. DAWSON REMAINS ON OXYMIZER AT 6 LITERS TO MAINTAIN SATURATION ABOVE 90%. PATIENT VISITED WITH FRIEND TODAY. THE FRIEND IS PURSUING CAREGIVER TRAINING TO BE PATIENT'S PAID CARE PROVIDER. IN THE MEAN TIME PATIENT MAY DISCHARGE HOME WITH THE FRIEND. POSSIBLY DISCHARGE TOMORROW. PATIENT MEDICATED X 1 FOR PAIN. CALL LIGHT IN REACH, WILL CONTINUE TO MONITOR.
--- NOTE | 2018-07-31 04:45 | NUR ---
SHIFT SUMMARY NO ACUTE CHANGES. PT HAS RESTED MOST OF NIGHT. MEDICATED X1 FOR BACK PAIN. O2 IN PLACE 5L VIA OXYMIZER. LUNGS COURSE T/O. BREATHING TREATMENTS PROVIDED PER ORDERS. PLAN IS FOR DC WITH FRIEND, WHO WILL BE STUDYING TO BECOME A CAREGIVER. THIS FRIEND STAYED WITH PT OVERNIGHT. PT STATES THAT SHE IS NOT READY FOR DC, AND THAT SHE DOES NOT HAVE THE THINGS NECESSARY, AND THAT HER FRIEND HAS NOT EVEN STARTED HER CAREGIVING CLASSES YET, AND DOES NOT KNOW FOR SURE WHEN SHE WILL START. PT EAGER TO SPEAK WITH CASE MANAGEMENT, AND DISCHARGE PLANNING TODAY. OVERALL RESTFUL NIGHT FOR PT. WILL CONTINUE TO MONITOR AND REPORT TO ONCOMING RN.
[2018-07-31 06:08] LABS: BASOPHILS ABSOLUTE AUTO 0.05 K/mm3 (0.00-0.23); BASOPHILS PERCENT AUTO 0 % (0-2); EOSINOPHILS ABSOLUTE AUTO 0.59 K/mm3 (0.00-0.68); EOSINOPHILS PERCENT AUTO 4 % (0-6); Hematocrit 47.6 % (33.0-51.0); Hemoglobin 13.9 g/dL (11.5-16.0); IMMATURE GRAN PERCENT AUTO 1 % (0-1); LYMPHOCYTES ABSOLUTE AUTO 3.78 K/mm3 (0.84-5.20); LYMPHOCYTES PERCENT AUTO 24 % (21-46); MONOCYTES ABSOLUTE AUTO 1.05 K/mm3 (0.16-1.47); MONOCYTES PERCENT AUTO 7 % (4-13); Mean Corpuscular HGB 28.8 pg (26.0-34.0); Mean Corpuscular HGB Conc 29.2 g/dL (31.5-36.5); Mean Corpuscular Volume 99 fL (80-100); NEUTROPHILS ABSOLUTE AUTO 10.36 K/mm3 (1.96-9.15); NEUTROPHILS PERCENT AUTO 65 % (41-73); Platelet Count 290 K/mm3 (150-400); RDW Coefficient Variation 14.7 % (11.7-14.2); RDW Standard Deviation 54.4 fL (35.1-46.3); Red Blood Cell Count 4.83 M/mm3 (3.80-5.20); White Blood Cell Count 15.93 K/mm3 (4.00-11.30)
[2018-07-31 06:17] LABS: Anion Gap 6 mmol/L (6-16); Blood Urea Nitrogen 19 mg/dL (8-24); Bun/Creatinine Ratio 27.8 (12.0-20.0); CO2, Blood 40 mmol/L (21-32); Calcium, Blood 9.4 mg/dL (8.5-10.1); Chloride, Blood 97 mmol/L (98-108); Creatinine, Blood 0.68 mg/dL (0.40-1.00); Glomerular Filtration Rate >60 (60-); Glucose, Blood 134 mg/dL (70-99); Potassium, Blood 3.4 mmol/L (3.5-5.5); Sodium, Blood 143 mmol/L (136-145)
--- NOTE | 2018-07-31 08:30 | NUR ---
PT PLEASANT COOP A/O. STATES PAIN GENERALIZED AT 9 HOPE FOR 5. MED PER EMAR. H/R REG, NO MURMER NOTED. NO TELE. LUNGS VERY LIGHTLY COARSE T/O. RESP LABORED ON 6L OXIMIZER. BT X4 LAST BM YEST. VOIDS BSC. 1 ASST. BED IN LOW POSITION, CALL LITE IN REACH, CALLS APPROP
[2018-07-31] MEDS ORDERED: DOXY100 PO (12:39)
[2018-07-31] MEDS ORDERED: FURO40 PO (12:42)
[2018-07-31] MEDS ORDERED: PRED10 (12:44)
[2018-07-31] MEDS ORDERED: BISA10S PR (12:44)
[2018-07-31] MEDS ORDERED: ACET325 PO (12:46)
[2018-07-31] MEDS ORDERED: BUDE.25 NEB (12:48)
[2018-07-31] MEDS ORDERED: DOCU100 PO (12:49)
[2018-07-31] MEDS ORDERED: HYDR1TAB94 (12:50)
[2018-07-31] MEDS ORDERED: ONDA4ODT MM (12:51)
[2018-07-31] MEDS ORDERED: Nicoderm Cq1 EAC1 TOP (12:55)
[2018-07-31] MEDS ORDERED: Aspercreme 1035.4 GM TOP (13:00)
[2018-07-31] MEDS ORDERED: IBUP400 PO (13:02)
--- NOTE | 2018-07-31 18:44 | NUR ---
DISCHARGE REVIEWED DWITH PT SHE VERBALIZED UNDERSTANDING. PT GAVE RX FOR PAIN MED TO HER FRIEND TO TAKE TO GET FILLED. FRIEND CALLED PT AND SHE REPORTS BED O2 ETC SET UP AT HOME. IV PULLED INTACT. NO TELE. PT BEING READIED TO GO HOME ON TRANSPORT SHORTLY.
--- NOTE | 2018-07-31 19:14 | NUR ---
PT OUT DOOR BY [facility] AT 1915
== END 2018-07-31 19:15 | disposition home or self-care (01) | DRG 871 ==
LOC: ER 10:43 → MEDS 14:20 → ENPENDDIS 07-31 12:04 → MEDS 07-31 19:15
PROVIDERS: Emergency Medicine; Pharmacist; ADMIT Family Medicine
PROC: 5A09457 Assistance with Respiratory Ventilation, 24-96 Consecutive Hours, Continuous Positive Airway Pressure (ICD-10-PCS; principal; 2018-07-26)
DX: A41.9 Sepsis, unspecified organism (principal); J96.21 Acute and chronic respiratory failure with hypoxia; J96.22 Acute and chronic respiratory failure with hypercapnia; I21.A1 Myocardial infarction type 2; I50.32 Chronic diastolic (congestive) heart failure; J44.1 Chronic obstructive pulmonary disease with (acute) exacerbation; J44.0 Chronic obstructive pulmonary disease with (acute) lower respiratory infection; J84.9 Interstitial pulmonary disease, unspecified; E66.2 Morbid (severe) obesity with alveolar hypoventilation; E87.2 Acidosis; Z68.42 Body mass index [BMI] 45.0-49.9, adult; I11.0 Hypertensive heart disease with heart failure; E11.40 Type 2 diabetes mellitus with diabetic neuropathy, unspecified; E11.59 Type 2 diabetes mellitus with other circulatory complications; E78.5 Hyperlipidemia, unspecified; F17.210 Nicotine dependence, cigarettes, uncomplicated; F32.9 Major depressive disorder, single episode, unspecified; K21.9 Gastro-esophageal reflux disease without esophagitis; K59.00 Constipation, unspecified; Z91.14 Patient's other noncompliance with medication regimen; G47.33 Obstructive sleep apnea (adult) (pediatric); I27.20 Pulmonary hypertension, unspecified; Z99.81 Dependence on supplemental oxygen; X04.XXXA Exposure to ignition of highly flammable material, initial encounter; T24.001A Burn of unspecified degree of unspecified site of right lower limb, except ankle and foot, initial encounter
CPT/HCPCS: 36415; 36600; 71045; 71046; 80048; 80053; 80069; 80202; 82803; 82947; 83605; 83880; 84145; 84443; 84484; 85025; 85027; 87040; 87486; 87581; 87633; 87798; 87804; 93005; 93010; 93308; 93321; 94010; 94640; 94644; 94664; 94667; 94760; 94762; 96365; 96372; 96374; 96375; 97110; 97163; 97166; 97530; 97535; 98960; 99285-25; 99406; 99407; C1751; G0378; J0696; J1100; J1644; J1650; J1940; J1956; J2930; J3370; J7030; J7050

== ENCOUNTER 2018-09-21 10:24 | Inpatient (IN) | payer OTHER ==
[~2018-09-21] VITALS: Ht 157.5 cm; Wt 119.3 kg
[~2018-09-21 10:24] MED LIST changes: +BUDE.25 NEB; -CLON.3 PO; +DOXY100 PO; +HYDR1TAB94; +IBUP400 PO
[2018-09-21 11:02] LABS: BASOPHILS ABSOLUTE AUTO 0.09 K/mm3 (0.00-0.23); BASOPHILS PERCENT AUTO 1 % (0-2); EOSINOPHILS ABSOLUTE AUTO 0.27 K/mm3 (0.00-0.68); EOSINOPHILS PERCENT AUTO 2 % (0-6); Hematocrit 45.8 % (33.0-51.0); Hemoglobin 13.4 g/dL (11.5-16.0); IMMATURE GRAN ABSOLUTE AUTO 0.08 K/mm3 (0.00-0.10); IMMATURE GRAN PERCENT AUTO 0 % (0-1); LYMPHOCYTES ABSOLUTE AUTO 4.15 K/mm3 (0.84-5.20); LYMPHOCYTES PERCENT AUTO 23 % (21-46); MONOCYTES ABSOLUTE AUTO 0.91 K/mm3 (0.16-1.47); MONOCYTES PERCENT AUTO 5 % (4-13); Mean Corpuscular HGB 28.8 pg (26.0-34.0); Mean Corpuscular HGB Conc 29.3 g/dL (31.5-36.5); Mean Corpuscular Volume 99 fL (80-100); Mean Platelet Volume 10.4 fL (9.1-12.4); NEUTROPHILS ABSOLUTE AUTO 12.68 K/mm3 (1.96-9.15); NEUTROPHILS PERCENT AUTO 70 % (41-73); Platelet Count 321 K/mm3 (150-400); RDW Coefficient Variation 15.9 % (11.7-14.2); RDW Standard Deviation 57.2 fL (35.1-46.3); Red Blood Cell Count 4.65 M/mm3 (3.80-5.20); White Blood Cell Count 18.18 K/mm3 (4.00-11.30)
[2018-09-21 11:16] LABS: Alanine Aminotransfer (ALT/SGP 9 U/L (12-78); Albumin, Blood 2.4 g/dL (3.4-5.0); Albumin/Globulin Ratio 0.5 (0.8-1.8); Alk Phos 118 U/L (50-136); Anion Gap 5 mmol/L (6-16); Aspartate Aminotrans (AST/SGOT 13 U/L (12-37); Bilirubin, Total 0.3 mg/dL (0.1-1.0); Blood Urea Nitrogen 5 mg/dL (8-24); Bun/Creatinine Ratio 7.7 (12.0-20.0); CO2, Blood 35 mmol/L (21-32); Calcium, Blood 8.6 mg/dL (8.5-10.1); Chloride, Blood 100 mmol/L (98-108); Creatinine, Blood 0.65 mg/dL (0.40-1.00); Glomerular Filtration Rate >60 (60-); Glucose, Blood 134 mg/dL (70-99); Potassium, Blood 3.8 mmol/L (3.5-5.5); Sodium, Blood 140 mmol/L (136-145); Total Protein, Blood 7.4 g/dL (6.4-8.2); Troponin I 0.033 ng/mL (0.000-0.040)
[2018-09-21 11:40] LABS: Base Excess Venous 12.7 mmol/L; Bicarbonate Venous 33.7 mmol/L (24.0-30.0); PCO2 Venous 67.4 mmHg (38-42); PO2 Venous 155 mmHg (38-42); pH Blood Venous 7.36 (7.34-7.37)
[2018-09-21 12:10] LABS: Influenza A Negative (NEGATIVE); Influenza B Negative (NEGATIVE)
[2018-09-21] MEDS ORDERED: Clotrimazole15 GM TOP (12:45)
[2018-09-21] MEDS ORDERED: GABA300 PO (12:55)
[2018-09-21] MEDS ORDERED: ACET325 PO (13:52)
[2018-09-21] MEDS ORDERED: CLON.3 PO (13:54)
[2018-09-21] MEDS ORDERED: Aspercreme 1035.4 GM TOP (14:01)
--- NOTE | 2018-09-21 16:05 | NUR ---
ADMISSION SUMMARY ALERT AND ORIENTED X 4. SR ON MONITOR, HR 70'S AND 80'S. LUNGS WITH RHONCHI THROUGHOUT, 10L O2 OXIMIZER NC, SATS 90-96%, ABLE TO HAVE CONVERSATIONS WITH STAFF AND FAMILY. REFUSES TO WEAR BIPAP OR CPAP. FLU NEGATIVE. PT STATES SHE IS INCONTINENT OF URINE AT TIMES, URGENCY, HAS NOT NEEDED TO VOID SINCE ARRIVAL TO ICU. LAST BM WAS YESTERDAY AT HOME. LEFT AC IV IN PLACE, SEVERAL ER STAFF ATTEMPTED TO SECURE A 2ND IV AND WERE NOT ABLE TO. REQUESTING CONSIDERATION FOR POWERGLIDE. PT'S DAUGHTER AT BEDSIDE, TEARFUL, SCREAMING LOUDLY AT HER MOTHER FOR CONSIDERING COMFORT CARE MEASURES. PALLIATIVE CARE AT BEDSIDE TO PROVIDE SUPPORT TO PT AND FAMILY.
[2018-09-21] MEDS ORDERED: SALINE NASAL M126 ML NS (16:40)
--- NOTE | 2018-09-21 16:41 | NUR ---
Met with patient and her friend. Pt able to answer questions and track conversation but drifts off and sleepy. provided pillows and rolled towel for her neck to resduce stress of ventilation. pt fell asleep. Review of pt prognosis with her friend. they pt is currently resideing in her friends house that is under construction. she has some caregiver hours available. 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 Her friend states she was witness to the shooiting of a friend at the [employer] and has her therapy dog with her. We reviewed hospice and comfort care. She asked many questions. pt was minimally able to particpate in conversation. pt transfered to ICU. Asked her friend to contact her daughters to see if they can come in. Will get patient settled and review comfort care. pt dependent in all adl's. FAST score 30%. Corey Aguilera has spoke with both of them on previous admits so updated a strategic plan to get her transitions to hospice. Will see what agency she ahs been useing and contact them for update.
--- NOTE | 2018-09-21 19:15 | NUR ---
ASSUMING CARE OF PT AT THIS TIME. PT REPORT RECEIVED AT BEDSIDE WITH OFFGOING NURSE, JAVIER FOWLER. PT LAYING IN BED, SLEEPING UPON ENTERING THE ROOM. VS STABLE - SEE VS FS. PT DOES NOT APPEAR TO BE IN DISTRESS AT THIS TIME. WILL REVIEW PLAN OF CARE.
--- NOTE | 2018-09-21 19:30 | NUR ---
ASSESSMENT PT CALM, QUIET, COOPERATIVE, RESPONDS TO VERBAL STIMULI, SPONT OPENS EYES, GARBLED SPEECH, OCC SLOW TO RESPOND, OCC HAVING TO REPEAT QUESTIONS, A&O X4, LETHARGIC, DROWSY, QUICKLY FALLS BACK ASLEEP WITH DECREASED STIMULI. SENSATION INTACT BUE'S. N/T BLE'S. PT CAMARGO. NO WEAKNESS NOTED. PT DENIES WEAKNESS. PT ASSISTS WITH TURNS AND ABLE TO REPOSITION SELF IN BED. PT C/O PAIN "ALL OVER" - MEDICATED WITH TYLENOL PER PHYSICIAN'S ORDER / UTILIZED NONPHARM METHODS. RHONCHI T/O, DIMINIHSED LOWER LOBSE. PT ON 10L OXYMIZER. RR 18. OXY SAT >90%. NO SOB AT REST. DYSPNEA WITH EXERTION. SHALLOW BREATHING. OCC NONPRODUCTIVE DRY COUGH. AFEBRILE. NSR. HR 80'S. BP STABLE - SEE VS FS. STRONG RADIAL PULSES. FAINT TIBIAL AND PEDAL PULSES. EDEMA BLE'S. WARM, PINK SKIN. ACTIVE BT X4 QUADRANTS. ABD SOFT, NONTENDER, MOD DIST (PT STATES ABD DIST IS NORMAL). OBESE. PT TOLERATING ADA DIET AND PO FLUIDS. NO BM. NO N/V. PT VOIDS IN BEDPAN WITH ASSISTANCE - YELLOW URINE NOTED. ATTENDS IN PLACE FOR INCONTINENCE. PIV X2. NS WITH 20 MEQ KCL AT 75 ML/HR.
--- NOTE | 2018-09-21 19:31 | NUR ---
I met with Justin and her dtr Vibha at bedside. Justin is working very hard to breathe, but appears quite lucid and talkative. She told her dtr that she feels she is nearing the end of her life. Dtr became hysterical--talking about what pt's would do to her. Justin appeared irritatd by Vibha's tears. I gently explained to Vibha that her mom has been suffering. Also explained that she has been told by physicians that it may be time for hospice. Explained that pt's illness is progressive--especially since she continues to smoke. Justin liked the idea of being at home and dying a peaceful . Dtr left the room at this point. I then met with pt's good friend Yoan in waiting area. Yoan has been caring for Justin in her home since the last hospitalization. Yoan verbalizes understanding that Justin has been suffering. Apparently, the two of them have spoken about this. It appears to me that Yoan is most likely Justin's best support right now. I provided theraputic listening and gentle insurance counselor to Justin and her loved ones. We have an easy rapport from Justin's previous hospitalizations. Justin and her dtrs will benefit from a clear, understandable explaination of Justin's disease course. An advanced Directive/ POLST reflecting Justin's wishes and MPOA will also be beneficial before Justin loses clarity/focus. I will attmept these conversations in coming days.
--- NOTE | 2018-09-21 21:00 | NUR ---
DR. TA / CODE STATUS CALLED DR. TA AT [address] TA ARRIVED IN ICU AT 2099 AFTER REVIEWING PT'S CHART AND POLST FORM. PT'S FAMILY AT BEDSIDE. IN ADDITION TO THIS RN PROVIDING EDUCATION REGARDING POLIST FORMS, ADVANCE DIRECTIVES, AND CODE STATUS, DR. TA PROVIDED EDUCATION TO PT'S FAMILY AND PT. PT CONT TO REFUSE CPAP AND BIPAP, BUT REQUESTED INTUBATION IF INDICATED. PT STATED, "I DON'T MIND INTUBATION BECAUSE I WILL BE KNOCKED OUT". PT REFUSED CPR, DEFIB/CARDIOVERSION, AND MEDICATIONS PER ACLS. THUS, DR. TA CHANGED CODE STATUS ORDER FROM DNI TO DNR WITH INTUBATION. DR. TA ALSO ORDERED OCEAN NASAL SPTRAY FOR CONGESTION (PT C/O CONGESTION), ATIVAN PRN FOR ANXIETY (PT C/O OCC ANXIETY AT HOME AND TAKES ANTI-ANXIETY MEDICATION), AND SOLU-MEDROL. WAITING FOR VERIFICATION OF MEDICATION FROM PHARMACY AT THIS TIME.
--- NOTE | 2018-09-21 21:09 | NUR ---
Extenisve conversation with daughter. Review of past admissions and patients decline. Review of comorbid conditions. Review of mothers wishes to be comfortable. Pt slept through the whole conversation. Did not wake patient. Discussed with daughter that if she declines next of kin needs to make decison. Advised that she has expressed wanting to be comforable and on hospice. Pt life long friend at bedside helped with startegy of care she offered her home for the patient to stay in during hospice. Patient daughter was her and her fathers caregiver for seven years. The daughter stated father was very sick and coded [facility]. She is grieveing but accepting. plan is to speak to her sisters and have a possible video confrence with sister to tell mother it ok and transition to hospice. pt is DNR and does not want intubation or cpap. Advised daughter mother his risk for sudden event. We reviewed suportive care patient is getting and she is comfortable here and will sleep more. we reviewed s/s in decline and prognsois. Her daughter works at [employer] is grieving and has to work [employer]. She left her phone number and advised if mother declines tonight and connot speak for herrself we may call to transition to comfort care. pt needs new polst. plan is to make decison tomorrow with patient consent or family if pt cant speak. Goal is for children to tell her its ok to go on hospice. will request hospice consult tomorrow.
[2018-09-22 03:32] LABS: BASOPHILS ABSOLUTE AUTO 0.01 K/mm3 (0.00-0.23); BASOPHILS PERCENT AUTO 0 % (0-2); EOSINOPHILS PERCENT AUTO 0 % (0-6); Hematocrit 45.5 % (33.0-51.0); IMMATURE GRAN ABSOLUTE AUTO 0.07 K/mm3 (0.00-0.10); IMMATURE GRAN PERCENT AUTO 1 % (0-1); LYMPHOCYTES ABSOLUTE AUTO 1.15 K/mm3 (0.84-5.20); LYMPHOCYTES PERCENT AUTO 8 % (21-46); MONOCYTES PERCENT AUTO 1 % (4-13); Mean Corpuscular HGB 28.6 pg (26.0-34.0); Mean Corpuscular HGB Conc 28.6 g/dL (31.5-36.5); Mean Corpuscular Volume 100 fL (80-100); Mean Platelet Volume 10.6 fL (9.1-12.4); NEUTROPHILS ABSOLUTE AUTO 13.05 K/mm3 (1.96-9.15); NEUTROPHILS PERCENT AUTO 91 % (41-73); Platelet Count 290 K/mm3 (150-400); RDW Coefficient Variation 15.9 % (11.7-14.2); RDW Standard Deviation 58.4 fL (35.1-46.3); Red Blood Cell Count 4.55 M/mm3 (3.80-5.20); White Blood Cell Count 14.38 K/mm3 (4.00-11.30)
[2018-09-22 03:50] LABS: Anion Gap 3 mmol/L (6-16); Blood Urea Nitrogen 11 mg/dL (8-24); Bun/Creatinine Ratio 19.1 (12.0-20.0); CO2, Blood 34 mmol/L (21-32); Calcium, Blood 8.8 mg/dL (8.5-10.1); Chloride, Blood 102 mmol/L (98-108); Creatinine, Blood 0.58 mg/dL (0.40-1.00); Glomerular Filtration Rate >60 (60-); Glucose, Blood 147 mg/dL (70-99); Potassium, Blood 4.6 mmol/L (3.5-5.5); Sodium, Blood 139 mmol/L (136-145)
--- NOTE | 2018-09-22 05:27 | NUR ---
SHIFT ASSESSMENT NO ACUTE CHANGES NOTED T/O SHIFT. PT SLEPT T/O SHIFT. PT CALM, QUIET, COOPERATIVE, RESPONDS TO VERBAL STIMULI, SPONT OPENS EYES, OCC GARBLED SPEECH AFTER WAKING UP PT, OCC SLOW TO RESPOND, A&O X4, LETHARGIC, DROWSY, QUICKLY FALLS BACK ASLEEP WITH DECREASED STIMULI. PT MORE AWAKE WHEN FAMILY WAS AT BEDSIDE. FAMILY LEFT BEDSIDE AT 2300 THIS SHIFT. SENSATION INTACT BUE'S. N/T BLE'S. PT CAMARGO. NO WEAKNESS NOTED. PT DENIES WEAKENSS FROM BASELINE. PT ASSISTS WITH TURNS AND ABLE TO REPOSITION SELF IN BED. PT C/O PAIN "ALL OVER" AT BEGINNING OF THE SHIFT THAT RESOLVED AFTER ADMINISTERING TYLENOL AND UTILIZING NONPHARM METHODS. RHONCHI T/O, DIMINISHED LOWER LOBES. PT ON 6L OXYMIZER. RR 15 TO 30'S. CONT TO TITRATE OXYGEN TO MAINTAIN SPO2. NO SOB AT REST. DYSPNEA WITH EXERTION. SHALLOW BREATHING. OCC NONPRODUCTIVE DRY COUGH. AFEBRILE. SB TO NSR. HR 50'S TO 80'S. BP STABLE - SEE VS FS. STRONG RADIAL PULSES. FAINT TIBIAL AND PEDAL PULSES. EDEMA BLE'S AND BILAT HADNS. WARM, PINK SKIN. ACTIVE BT X4 QUADRANTS. ABD SOFT, NONTENDER, MOD DIST (PT STATES ABD DIST IS NORMAL). OBESE. PT TOLERATING ADA DIET AND PO FLUIDS. NO BM. NO N/V. PT VOIDS IN BEDPAN WITH ASSISATNCE - YELLOW URINE NOTED. ATTENDS IN PLACE FOR INCONTINENCE. PIV X2. NS WITH 20 MEQ OF KCL AT 75 ML/HR. NS TKO ON STANDBY. WILL CONT TO MONITOR PT AND WILL PROVIDE BEDSIDE REPORT TO ONCOMING NURSE THIS AM.
--- NOTE | 2018-09-22 07:40 | NUR ---
ASSUMED CARE: PT RESTING QUIETLY AT THIS TIME ON 5L O2 VIA OXYMIZER. DR JAMES WAS IN TO SEE PT THIS AM. ORDERED STATUS CHANGE. JEWEL SUPERVISOR AWARE. NO FURTHER NEEDS OR CONCERNS NOTED AT THIS TIME.
--- NOTE | 2018-09-22 10:16 | NUR ---
PT'S MIDDLE DAUGHTER AT BEDSIDE. STATED SHE WANTED TO SPEAK TO THOSE WHO ARE ON PT'S TEAM. DR JAMES STATED HE WAS UNAVAILABLE. DR BRODERICK HAS BEEN NOTIFIED OF CONSULT. YANETH FROM PALLIATIVE CARE WAS AT BEDSIDE DISCUSSING PLAN TO REVIEW POLST WITH PT. PT ON 6L, VERY DYSPNEIC ON EXERTION. REVIEWED PURSED LIP BREATHING WITH PT AND TO NOT TALK UNTIL SHE WAS ABLE TO CATCH HER BREATH.
--- NOTE | 2018-09-22 13:44 | NUR ---
PT C/O PAIN THAT IS UNRELIEVED BY TYLENOL. DISCUSSED WITH DR BRODERICK WHO STATES THAT SHE IS NOT COMFORTABLE GIVING PT PAIN MEDS THAT COULD SEDATE AND DECREASE PT'S DRIVE TO BREATHE UNLESS SHE IS WILLING TO WEAR HER BIPAP/CPAP. THIS WAS RELAYED TO PT WHO STATED SHE DID NOT WANT TO WEAR BIPAP SO SHE WILL SUFFER WITH THE PAIN. PT GETS VERY AGITATED WHEN ATTEMPTING TO EDUCATE AND ENCOURAGE MOVEMENT IN A POSITION OTHER THAN HER LEFT SIDE
--- NOTE | 2018-09-22 15:28 | NUR ---
YANETH AND WES FROM PALLIATIVE CARE CAME TO SPEAK WITH PT REGARDING WISHES AND POLST FORM. PT STATES SHE WANTS TO BE DNR/DNI AND WANTS TO BE COMFORTABLE. DISCUSSED WITH HER THE OPTION OF COMFORT CARE AND PT STATED SHE STILL WANTED THE STEROIDS AND ANTIBIOTICS. EDUCATED PT THAT COMFORT CARE IS WHAT SHE WANTS AND THE MAIN GOAL IS TO BE COMFORATBLE. PT AGREED THAT SHE WANTED TO GO HOME ON HOSPICE AND THAT SHE WANTS DNR/DNI. PT BEGAN TO GET OVERWHELMED BY INFORMATION AND WAS STILL UNSURE ABOUT COMFORT CARE. DISCUSSED WITH DR BRODERICK AND DR JAMES. SEE NEW ORDERS. PALLIATIVE CARE PLANS TO SPEAK WITH PT FURTHER AND WITH DRS FURTHER TO COME UP WITH A PLAN FOR DISCHARGE
--- NOTE | 2018-09-22 15:50 | NUR ---
PT WAS IN THE MIDDLE OF AN ARGUMENT WITH DAUGHTER AND ASKED THAT I LEAVE DNR BRACELET ON BED SIDE TABLE. DNR ALSO TAPED TO DOORWAY
--- NOTE | 2018-09-22 18:02 | NUR ---
SHIFT SUMMARY: PT CONTINUES TO REFUSE TO WEAR DNR BAND. EXTRA BAND HANGING OUTSIDE DOOR. PT DID NOT WANT EVENING BLOOD SUGAR CHECK DONE AND WHEN PT STATED HER SOUP SPILLED ON HER GOWN, NURSE OFFERED TO CHANGE IT AND PT SAID "NOT RIGHT NOW." PLAN IS FOR PT TO DC ON HOSPICE. CURRENTLY ON 8L OXYMIZER AT 95%. TITRATING FOR COMFORT BUT HAS BEEN HIGH 10L. DOCTORS AWARE. MEDICATED X1 FOR PAIN. NO FURTHER NEEDS OR CONCERNS AT THIS TIME.
--- NOTE | 2018-09-22 18:03 | NUR ---
I met with Justin alone in room. We have an easy rapport from previous hospitalizations. She apeared lucid. Justin is very clear with regard to what she wants. She does not want CPR or intubation. She also does not want to do anything she doesn't want to do. She "hates" wearing the bipap and cpap. She wants her pain and symptoms managed better. When I explained Comfort Measures and Hospice to her, she pointed at me and said loudly, "Thats what I want!" Justin verbalizes that her dtrs will most likely disagree with this choice. "I don't care though." I asked RN to join the conversation. She did a great job explaining comfort measures to Justin, and Justin again said "that's what I want. however, Justin became overwhemlmed after so much conversation. She wants to continue steriods and antibiotics, but was unable to grasp that these could also be provided with comfort measures. It was clear throughout my visit with Justin that she is working very hard for each breath, and as conversation continued, this became more apparent. Justin is not particularly adventist, but does beleive in an afterlife. She is not afraid of . She is fraid of suffering. Justin will benefit from continued emotional support and assurance of care. We completed a POLST together, reflecting DNR/ comfort measures. she did tell me this is what she wants. [facility] services will remain available.
--- NOTE | 2018-09-22 19:30 | NUR ---
ASSUME CARE REPORT RECIEVED FROM OFF GOING RN CHAPIS. MONITOR INTACT SHOWING SINUS RHYTHM/. HEART RATE 70'S. LUNG SOUNDS DISTANT/DECREASED WORSE ON LEFT THAN R. OXYMIZER IN PLACE AT 8L/MIN SPO2 95% SOB WITH ANY ACTIVITY NEEDS REMINDED/ENCOURAGED TO SLOW RESPIRATIONS AND PURSE LIP BREATH. ABDOMNE SOFT WITH BOWEL SOUNDS FOUR QUAD KNEE HIGH PARUL HOSE TO LOWER EXTREMITIES. REQUEST "SOMETHING TO EATA' OBTAINED TURKEY SANDWITHCH AND TAPICOA PUDDING. TOLERATES WELL. INFORMED OF PENDING TRANSFER TO PCU ROOM 7. CONTINUE TO MONITOR AND REPORT CHANGE IN PATIENT CONDITION.
--- NOTE | 2018-09-22 19:55 | NUR ---
REPORT CALLED AND GIVEN TO SURAJ PHILIP RN, TRANS KT TO PCU 7 PER BED.
--- NOTE | 2018-09-23 05:41 | NUR ---
SHIFT SUMMARY: PATIENT ARRIVED TO U07 AT APPROX 2004 VIA BED FROM ICU, SLIDE SHEET USED TO TRANSFER PATIENT. FAMILY AND DOG IN ROOM. PATIENT ORIENTED TO ROOM, CALL LIGHT AND UNIT POLICIES. VSS, BED LOW AND LOCKED. PATIENT INSISTED ON GOING OUTSIDE TO 'WALK MY DOG', CHARGE NURSE AND NURSE LOANS CONSULTANT NOTIFIED. PATIENT NOTIFIED THAT WE CANNOT STOP HER FROM GOING OUTSIDE BUT SHE CANNOT TAKE HOSPITAL EQUIPMENT WITH HER. PATIENT STATED THAT SHE HAD HER OWN OXYGEN AND SHE WENT OUTSIDE, IN A WHEELCHAIR, WITH FAMILY AND DOG.
[2018-09-23] MEDS ORDERED: HYDR1TAB94 PO (11:39)
[2018-09-23] MEDS ORDERED: Ativan1 MG PO (11:43)
[2018-09-23] MEDS ORDERED: MORP20L PO (11:45)
[2018-09-23] MEDS ORDERED: Transderm-Scop1 EACH TD (11:46)
--- NOTE | 2018-09-23 11:54 | NUR ---
PT DAUGHTER ABBEY IN TO SEE PT. DAUGHTER REPORTS SHE WAS CONCERNED ABOUT PT BEING DC'S WITH FRIEND PAUL. DAUGHTER REPORTS PT HAS VOICED TO THEM THAT SHE DOES NOT TAKE CARE OF HER AT HOME SUCH NOT TURNING UP HEAT, MEDS, ETC. DAUGHTER REPORTS THAT SHE FEELS LIKE SHE HAS BEEN "NEGLECTED". FRIEND STEPPED OUT AND I WENT IN TO THE ROOM WITH DAUGHTER ABBEY AND SPOKE TO PT WHO IS OF SOUNDS MIND AND ALERT AND ORIENTED AND STATED SHE IS COMFORTABLE GOING HOME WITH HER FRIEND AND FEELS SAFE. PT DENIES ANY NEGLECT OR THAT HER FRIEND DOES NOT HELP TAKE CARE OF HER. PT REPORTS SHE WANTS TO GO HOME AND UNDERSTANDS WHAT HOSPICE IS. SPOKE WITH EMBROIDERY DESIGNER GABE WHO REPORTS SINCE PT IS OF SOUND MIND TO MAKE DECISIONS THAT WE CANNOT HOLD DISCHARGE. WILL INFORM DAUGHTER THAT IF SHE IS CONCERNED WITH THIS SHE CAN CALL THE POLICE OR ADULT PROTECTIVE SERVICES TO FILE A REPORT. AT THIS TIME AWAITING TRANSPORT AT 1430 VIA W/C TRANSPORT. HELENE TO DROP OFF PORTABLE 02 HERE AND THEN A CONCENTRATOR AT HOME FOR HIGHER FLOW OXYGEN. THIS RN HAS NOT NOTED ANY SIGNS OF ABUSE OR NEGLECT WITH THE FRIEND IN THE ROOM NOR SEE SIGNS OF THIS AT THIS TIME.
[2018-09-23 11:55] LABS: Vancomycin, Trough 19.3 ug/mL (5.0-10.0)
--- NOTE | 2018-09-23 12:47 | NUR ---
HELENE IN TO DROP OFF PORTABLE HOME 02.
[2018-09-23] MEDS ORDERED: LEVFLO500 PO (12:56)
--- NOTE | 2018-09-23 13:05 | NUR ---
PT REQUESTING TO GO HOME ON ANTIBIOTICS. DR JAMES NOTIFIED AND ORDER RECEIVED FOR LEVAQUIN 500MG PO DAILY FOR 7 DAYS. ORDER CALLED INTO [facility].
--- NOTE | 2018-09-23 13:30 | NUR ---
DISCHARGE INSTRUCTIONS REVIEWED WITH PT, DAUGHTER AND FRIEND. HARD SCRIPTS GIVEN TO DAUGHTER TO TAKE TO [facility]. PT OUTSIDE TO IN W/C AT THIS TIME WITH HOME 02. PT AWAITING [facility] W/C TRANSPORT.
--- NOTE | 2018-09-23 14:32 | NUR ---
PT DC'D HOME VIA [facility] W/[facility] AT 1430. DAUGHTER AND FRIEND WITH PT.
== END 2018-09-23 14:30 | disposition hospice, home (50) | DRG 193 ==
LOC: ER 10:24 → ICUW 12:33 → ERHOLD 12:33 → ICUW 15:58 → PCU 09-22 20:06
PROVIDERS: Emergency Medicine; ADMIT Hospitalist
DX: J18.9 Pneumonia, unspecified organism (principal); J96.21 Acute and chronic respiratory failure with hypoxia; J84.9 Interstitial pulmonary disease, unspecified; I50.32 Chronic diastolic (congestive) heart failure; E66.2 Morbid (severe) obesity with alveolar hypoventilation; Z68.43 Body mass index [BMI] 50.0-59.9, adult; J44.1 Chronic obstructive pulmonary disease with (acute) exacerbation; E87.2 Acidosis; J44.0 Chronic obstructive pulmonary disease with (acute) lower respiratory infection; Z99.81 Dependence on supplemental oxygen; E11.40 Type 2 diabetes mellitus with diabetic neuropathy, unspecified; K21.9 Gastro-esophageal reflux disease without esophagitis; I27.20 Pulmonary hypertension, unspecified; E78.5 Hyperlipidemia, unspecified; F41.8 Other specified anxiety disorders; I11.0 Hypertensive heart disease with heart failure; M19.90 Unspecified osteoarthritis, unspecified site; F32.9 Major depressive disorder, single episode, unspecified; F43.10 Post-traumatic stress disorder, unspecified; E78.00 Pure hypercholesterolemia, unspecified; F17.210 Nicotine dependence, cigarettes, uncomplicated; Z66 Do not resuscitate; Z79.84 Long term (current) use of oral hypoglycemic drugs
CPT/HCPCS: 36415; 71045; 71250; 80048; 80053; 80202; 82803; 82947; 83605; 83735; 83880; 84484; 85025; 87040; 87804; 93005; 93010; 94640; 94644; 94760; 96365; 96366; 96367; 99285-25; A9270-GY; J1650; J2060; J2543; J2920; J2930; J3370; J3480; J7050

== ENCOUNTER 2018-11-02 15:59 | Inpatient (IN) | payer OTHER ==
[~2018-11-02] VITALS: Ht 157.5 cm; Wt 120.9 kg
[~2018-11-02 15:59] MED LIST changes: +Aspercreme 1035.4 GM TOP; +Ativan1 MG PO; +CLON.3 PO; +Clotrimazole15 GM TOP; +HYDR1TAB94 PO; +MORP20L PO; +SALINE NASAL M126 ML; +Transderm-Scop1 EACH TD
[2018-11-02 16:24] LABS: BASOPHILS ABSOLUTE AUTO 0.06 K/mm3 (0.00-0.23); BASOPHILS PERCENT AUTO 1 % (0-2); EOSINOPHILS ABSOLUTE AUTO 0.21 K/mm3 (0.00-0.68); EOSINOPHILS PERCENT AUTO 2 % (0-6); Hematocrit 48.2 % (33.0-51.0); Hemoglobin 13.9 g/dL (11.5-16.0); IMMATURE GRAN ABSOLUTE AUTO 0.04 K/mm3 (0.00-0.10); IMMATURE GRAN PERCENT AUTO 0 % (0-1); LYMPHOCYTES ABSOLUTE AUTO 2.79 K/mm3 (0.84-5.20); LYMPHOCYTES PERCENT AUTO 21 % (21-46); MONOCYTES ABSOLUTE AUTO 0.66 K/mm3 (0.16-1.47); MONOCYTES PERCENT AUTO 5 % (4-13); Mean Corpuscular HGB 28.2 pg (26.0-34.0); Mean Corpuscular HGB Conc 28.8 g/dL (31.5-36.5); Mean Corpuscular Volume 98 fL (80-100); Mean Platelet Volume 9.9 fL (9.1-12.4); NEUTROPHILS ABSOLUTE AUTO 9.37 K/mm3 (1.96-9.15); NEUTROPHILS PERCENT AUTO 71 % (41-73); Platelet Count 334 K/mm3 (150-400); RDW Standard Deviation 57.6 fL (35.1-46.3); Red Blood Cell Count 4.93 M/mm3 (3.80-5.20); White Blood Cell Count 13.13 K/mm3 (4.00-11.30)
[2018-11-02 16:43] LABS: PCO2 Arterial 68.5 mmHg (35-45); PO2 Arterial 73.4 mmHg (80-100); pH Blood Arterial 7.34 (7.35-7.45)
[2018-11-02 16:51] LABS: Alanine Aminotransfer (ALT/SGP 15 U/L (12-78); Albumin, Blood 2.9 g/dL (3.4-5.0); Albumin/Globulin Ratio 0.6 (0.8-1.8); Alk Phos 109 U/L (50-136); Anion Gap 5 mmol/L (6-16); Aspartate Aminotrans (AST/SGOT 15 U/L (12-37); Bilirubin, Total 0.2 mg/dL (0.1-1.0); Blood Urea Nitrogen 8 mg/dL (8-24); Bun/Creatinine Ratio 12.8 (12.0-20.0); CO2, Blood 33 mmol/L (21-32); Calcium, Blood 8.9 mg/dL (8.5-10.1); Chloride, Blood 100 mmol/L (98-108); Creatinine, Blood 0.63 mg/dL (0.40-1.00); Globulin, Blood 5.1 g/dL (2.2-4.0); Glomerular Filtration Rate >60 (60-); Glucose, Blood 120 mg/dL (70-99); Potassium, Blood 4.3 mmol/L (3.5-5.5); Sodium, Blood 138 mmol/L (136-145); Troponin I 0.055 ng/mL (0.000-0.040)
[2018-11-02] MEDS ORDERED: ATOR10 PO (18:17)
[2018-11-02] MEDS ORDERED: Omeprazole20 M1 PO (18:18)
[2018-11-02] MEDS ORDERED: Monodox100 MG PO (18:19)
[2018-11-02] MEDS ORDERED: Norco 5-325 Ta1 EACH PO (20:49)
[2018-11-02 21:34] LABS: pH Blood Arterial 7.26 (7.35-7.45)
[2018-11-02 21:35] LABS: PCO2 Arterial 75.9 mmHg (35-45); PO2 Arterial 66.4 mmHg (80-100)
[2018-11-02 23:52] LABS: Adenovirus Not Detected (NOT DETECT); Bordetella pertussis Not Detected (NOT DETECT); Chlamydophila pneumoniae Not Detected (NOT DETECT); Coronavirus 229E Not Detected (NOT DETECT); Coronavirus HKU1 Not Detected (NOT DETECT); Coronavirus NL63 Not Detected (NOT DETECT); Coronavirus OC43 Not Detected (NOT DETECT); Human Metapneumovirus Not Detected (NOT DETECT); Human Rhinovirus/Enterovirus Not Detected (NOT DETECT); Influenza A Not Detected (NOT DETECT); Influenza A/2009-H1 Not Detected (NOT DETECT); Influenza A/H1 Not Detected (NOT DETECT); Influenza A/H3 Not Detected (NOT DETECT); Influenza B Not Detected (NOT DETECT); Mycoplasma pneumoniae Not Detected (NOT DETECT); Parainfluenza Virus 1 Not Detected (NOT DETECT); Parainfluenza Virus 2 Not Detected (NOT DETECT); Parainfluenza Virus 3 Not Detected (NOT DETECT); Parainfluenza Virus 4 Not Detected (NOT DETECT); Respiratory Syncytial Virus Not Detected (NOT DETECT)
--- NOTE | 2018-11-03 02:03 | NUR ---
Assumed care of pt at approx 1945. Pt transferred from ED via gurney, transferred to hospital bed via slidersheet. Pt moderately tolerated transfer. Pt vocalized discomfort. At time of transfer, pt on 12L nonrebreather. Pt noncompliant with keeping mask on face, continual redirection given to pt, pt continued to take mask off face. 02 reading down to 72% while mask was off pt. Educated pt on need for mask to remain on her face, 15L nonrebreather placed on pt and saturations returned to 90%. All other VSS. Pt in no apparent sign of distress. Pt without complaints of chest pain or pressure. Pt states generalized, chronic pain. Coarse lung sounds throughout, dim to bilat bases. Pt redirected throughout entire admission assessments to keep nonrebreather on face. Pt would pick and pull on mask. Update given to Hira Goff and ABG ordered per provider telephone order. RT in to obtain ABG. Pt refused bipap in ED and continues to state that she will not wear bipap "even if I ". Critical value from ABG's called in to this RN. Pt with PH 7.26 and CO2 75.9. Provider notified and in to see patient. Vital need for bipap placement discussed with pt. Pt agreeable to wear bipap if medicated for anxiety. 1mg ativan q4 PRN anxiety order recieved per hira goff and given per orders. Pt currently on BIPAP, 05/28 at 60%fio2 resting comfortably in bed with no further complaints. See admission assessment for detailed assessment. Will continue to monitor and update as appropriate. order.
[2018-11-03 04:14] LABS: Hematocrit 46.7 % (33.0-51.0); Hemoglobin 13.2 g/dL (11.5-16.0); Mean Corpuscular HGB 28.2 pg (26.0-34.0); Mean Corpuscular HGB Conc 28.3 g/dL (31.5-36.5); Mean Corpuscular Volume 100 fL (80-100); Platelet Count 290 K/mm3 (150-400); RDW Standard Deviation 59.1 fL (35.1-46.3); Red Blood Cell Count 4.68 M/mm3 (3.80-5.20); White Blood Cell Count 8.33 K/mm3 (4.00-11.30)
[2018-11-03 04:32] LABS: Anion Gap 3 mmol/L (6-16); Blood Urea Nitrogen 9 mg/dL (8-24); Bun/Creatinine Ratio 13.2 (12.0-20.0); CO2, Blood 37 mmol/L (21-32); Calcium, Blood 8.7 mg/dL (8.5-10.1); Chloride, Blood 100 mmol/L (98-108); Creatinine, Blood 0.68 mg/dL (0.40-1.00); Glomerular Filtration Rate >60 (60-); Glucose, Blood 127 mg/dL (70-99); Magnesium, Blood 1.9 mg/dL (1.6-2.4); Potassium, Blood 4.2 mmol/L (3.5-5.5); Sodium, Blood 140 mmol/L (136-145)
--- NOTE | 2018-11-03 05:08 | NUR ---
Shift Summary Pt remains on bipap with settings unchanged at 12/6 and 60%fio2. 1mg ativan given before bipap placed at approx 2230 per orders for anxiety. Pt remains comfortable and sleeping. Friend of pt and friend's service dog at bedside, sleeping. o2 sats above 90% on bipap. Pt trending towards hypotension with last three BP readings as follows: 2016 109/71; 2 106/53; 0428 103/46. All MAPs are above 65. All extremities with cap refill<3 seconds. HR stable in 70's. no acute changes this shift, no events on tele. Able to reposition self. will continue to monitor and update as needed.
--- NOTE | 2018-11-03 07:35 | NUR ---
INITIAL ASSESSMENT: PT IS RESTING ON HER LEFT SIDE WITH THE BI-PAP ON. PT IS RESTING WITH EYES CLOSED, RESP E/U. PT EASILY AWAKENS WITH VERBAL STIMULI, PT DOESN'T STAY AWAKE LONG ENOUGH TO ANSWER QUESTIONS. PT IS TO NOD WHEN ASKED IF SHE HAS PAIN SHE JUST ISN'T STAYING AWAKE LONG ENOUGH TO RATE HER PAIN. HRR. LS DIM T/O, BIOX WNL ON BI-PAP WITH SETTINGS 12/6 FIO2 60%. BT +. PPP. BP A LITTLE LOW WITH PATIENT LYING ON HER RIGHT SIDE. PT WAS ABLE TO FOLLOW DIRECTIONS TO LIE ON HER BACK, BP BETTER-SEE FLOWSHEET. PTS ROOM MATE AT THE BEDSIDE. CALL LIGHT IN REACH, WILL CONTINUE TO MONITOR.
[2018-11-03 09:36] LABS: PCO2 Arterial 82.1 mmHg (35-45); PO2 Arterial 72.5 mmHg (80-100); pH Blood Arterial 7.29 (7.35-7.45)
--- NOTE | 2018-11-03 09:45 | NUR ---
JOAO RT TO ROOM TO DO ABG. RESULTS ARE WORSE. RT TO ADJUST BI-PAP SETTINGS, BI-PAP SETTINGS ARE NOW 14/6 FIO2 STILL AT 60%. PT CONTINUES TO REST COMFORTABLY WITH BI-PAP ON. DISCUSSED WITH MD PT ISN'T ABLE TO STAY AWAKE LONG ENOUGH TO SWALLOW PILLS.
--- NOTE | 2018-11-03 09:45 | NUR ---
MD ORDERED ABG FOR 12 WILL REASSESS AND NOTIFY NEEDED, LASIX GIVEN ALL OTHER MEDS HELD.
[2018-11-03 12:17] LABS: pH Blood Arterial 7.27 (7.35-7.45)
[2018-11-03 12:18] LABS: PCO2 Arterial 90.6 mmHg (35-45); PO2 Arterial 87.9 mmHg (80-100)
--- NOTE | 2018-11-03 12:43 | NUR ---
RT ABRAHAM ABG. RESULTS ARE WORSE, NOTIFIED. PULM CONSULT ORDERED AND DR. ACUNA NOTIFIED. VSS. ROOM MATE AND DAUGHTER AT BEDSIDE. RT TO ADJUST BI-PAP SETTINGS SETTINGS ARE 14/6 RATE 22, FIO2 WAS DECREASED TO 30%. WILL CONTINUE TO MONITOR.
--- NOTE | 2018-11-03 15:30 | NUR ---
ASSESSMENT: PT IS STARTING TO GET RESTLESS, PULLING BI-PAP OFF. BI-PAP BACK IN PLACE AND PT REPOSITIONED FOR COMFORT. VSS. ROOM MATE STILL AT BEDSIDE, AWAITING DR. ACUNA TO COME AND ASSESS THE PATIENT. PT RESTING WITH EYES CLOSED, CALL LIGHT IN REACH. WILL CONTINUE TO MONITOR.
--- NOTE | 2018-11-03 16:05 | NUR ---
Spiritual care visit conducted. Upon recieving a request to visit patient's room because of concerns related to patient's client care specialist/friend's coping skills, I visited. Patient's client care specialist/friend introduced herself as Beth and she immediately opened up about many issues that are troubling her including the patient's current health condition. I listened empathically, provided pastoral personal financial counselor, spiritual guidance, normalized her condition, reinforced helpful attitudes and practices and provided prayer. Beth responded well and was very tearful during the prayer. She stated that the conversation was helpful and that she appreciated my help. I will continue to remain available to patient and Beth.
--- NOTE | 2018-11-03 17:56 | NUR ---
PT HAS DONE OK TODAY. PT HAS BEEN ON BI-PAP WITH OUT BREAKS SINCE THE BEGINNING OF THE SHIFT. CO2 HAS BEEN TRENDING UP DESPITE BEING ON THE BI-PAP FOR ALMOST THE ENTIRE SHIFT. PT IS AWAKE AT THIS TIME, OXYGEN STABLE ON 5L VIA NC, PTS HOME O2 DOSE. DR. ACUNA WAS CONSULTED TODAY AND CAME TO SEE PT, ABG IN AM. PT ENCORUAGED TO WEAR BI-PAP MUCH POSSIBLE AT HS. PT ALSO ENCOURAGED TO LIE ON RIGHT SIDE AT TIMES BECAUSE SHE FAVORS THE LEFT SIDE. ROOMMATE/CAREGIVER AT BEDSIDE. PT EATING DINNER. PT DENIES OTHER NEEDS AT THIS TIME, WILL REPORT TO ONCOMING RN.
--- NOTE | 2018-11-04 02:56 | NUR ---
Assumed care of pt at approx 1900. VSS and pt in no apparent sign of distress. See shift assessment for detailed assessment. 1mg ativan given per orders for anxiety and bipap placed on pt with settings 14/6 at 40% fio2. Pt tolerating bipap well, resting comfortably. Friend at bedside this shift with pt. Daughter of pt in at approx 0200 to see pt. Pt visibly very happy to see daughter. Daughter's male friend in as well causing disturbance to pt and family. Pt daughter asked her friend to stay out of the room. The friend remained on the unit until the daughter and him left the building together at approx 0245. Pt and family asked that this person not come back to visit. security notified. Will pass along in report. Will continue to monitor.
[2018-11-04 04:32] LABS: Anion Gap 3 mmol/L (6-16); Blood Urea Nitrogen 16 mg/dL (8-24); Bun/Creatinine Ratio 21.6 (12.0-20.0); CO2, Blood 43 mmol/L (21-32); Calcium, Blood 8.9 mg/dL (8.5-10.1); Chloride, Blood 95 mmol/L (98-108); Creatinine, Blood 0.74 mg/dL (0.40-1.00); Glomerular Filtration Rate >60 (60-); Glucose, Blood 134 mg/dL (70-99); Potassium, Blood 4.2 mmol/L (3.5-5.5); Sodium, Blood 141 mmol/L (136-145)
--- NOTE | 2018-11-04 04:43 | NUR ---
Shift Summary No acute changes this shift. Pt remains alert and oriented. Inappropriate responses have decreased. Pt requests that daughters boyfrienalesha, Vineet, not be welcomed back to her room. Security and charge nurse notifed and aware. Pt on bipap all shift with two 15 minute breaks. Pt tolerating bipap well with 1mg ativan IV q4. ABG scheduled for this AM. VSS. No apparent signs of distress. Pt unchanged from initial assessment. Will continue to monitor and update as appropriate.
[2018-11-04 05:16] LABS: PCO2 Arterial 84.5 mmHg (35-45); PO2 Arterial 71.1 mmHg (80-100); pH Blood Arterial 7.31 (7.35-7.45)
[2018-11-04 11:41] LABS: U Amphetamine Screen Not Detected; U Barbituate Screen Not Detected; U Benzodiazapine Screen DETECTED; U Buprenorphine Screen Not Detected; U Cannabinoids Screen Not Detected; U Cocaine Screen Not Detected; U Methadone Screen Not Detected; U Methamphetamine Screen Not Detected; U Opiates Screen DETECTED; U Oxycodone Screen Not Detected; U Phencyclidine Screen Not Detected; U Propoxyphene Screen Not Detected
--- NOTE | 2018-11-04 13:02 | NUR ---
PAL CARE NOTES REVIEWED FROM PREVIOUS ADMISSIONS: PT WAS ADAMENT WITH NUMEROUS STAFF THAT SHE WANTED TO BE A DNR AND SHE WANTED COMFORT MEASURES ONLY. SENIOR ENGINEERING TECH AND NURSES DOCUMENTED CONVERSATIONS WITH HER, HER DAUGHTER, MOHAN AND HER FRIEND, PAUL RE: PT'S EXPRESSED WISHES. PT HAD REQUESTED HOSPICE SERVICES AT HER FRIEND'S HOME ON LAST ADMISSION. HOSPICE WAS ORDERED AND [facility] ATTEMPTED TO SEE HER A NUMBER OF TIMES BEFORE PT EVENTUALLY DECLINED "FOR THE TIME BEING". I WILL LET CM KNOW PT MAY NEED MORE SUPPORT WHERE SHE IS LIVING IN FRIEND, PAUL' HOME.
--- NOTE | 2018-11-04 13:37 | NUR ---
Patient is sleeping with rn progressive care unit bedside when I entered patient's room. Caregiver, Beth, is crying and so I ask what her tears mean. Beth replies that she is simply over whelmed with all that is happening in her world. I help her unpack the list of things weighing on her and talk to her about the items that can be let go of and to focus on the few things that she can do today. Beth then stated that she is just about to head out but asked if I could come back later and pray for patient when she is more aert. I continue to remain available for patient and family.
--- NOTE | 2018-11-04 17:01 | NUR ---
SHIFT SUMMARY PT WAS VERY LUCID WELL A&O X3 THIS MORNING. VSS DURING SHIFT. WE TOOK THE BIPAP OFF FOR BREAKFAST AND SWITCHED HER TO THE OXIMIZER AT 7L UNTIL AFTER LUNCH AROUND 1300. PT WAS BECOMING A BIT CONFUSED, UNSURE OF WHERE SHE WAS, STATING TO "GRAB HER WC FOR GOING HOME", SAYING SHE LIVES IN A PLACE THE CAREGIVER SAID SHE DIDN'T LIVE. PT WAS GIVEN AN ATIVAN AND PUT BACK ON BIPAP, PT HAS SINCE BEEN ON BIPAP AND TOLERATING WELL IN THE MID 90'S. PT TELE HAS BEEN SR 80'S. PT HAS BEEN REPOSITIONED Q2HRS AND PUT ON EGG SHELL BED MAT DUE TO REDNESS ON HAMSTRING AND BUTTOCKS, WHICH IS CAUSING SOME SORENESS. LUNG SOUNDS ARE COARSE. CODE STATUS QUESTIONS HAVE BEEN DISCUSSED WITH PALIATIVE CARE, TIM FOUND ON FILE. DR ALONZO AWARE, CODE STATUS CHANGED. CALL LIGHT IN REACH, BED IN LOWEST POSITION, BED ALARM ON, BELONGINGS IN REACH, PT ORIENTED TO SAFETY PRECAUTIONS.
[2018-11-05 04:45] LABS: Anion Gap 0 mmol/L (6-16); Blood Urea Nitrogen 21 mg/dL (8-24); Bun/Creatinine Ratio 29.4 (12.0-20.0); CO2, Blood 41 mmol/L (21-32); Chloride, Blood 98 mmol/L (98-108); Creatinine, Blood 0.72 mg/dL (0.40-1.00); Glomerular Filtration Rate >60 (60-); Glucose, Blood 137 mg/dL (70-99); Sodium, Blood 139 mmol/L (136-145)
--- NOTE | 2018-11-05 05:35 | NUR ---
ASSUMED CARE FROM JANETH BAIG AND SN NABEEL AT APPROXIMATELY 1900. PT BECOMES FRUSTRATED W/ BIPAP AND CARE FROM TIME TO TIME; MEDICATION ADMINISTERED PER ORDERS TO ASSIST W/ AXIETY AND HELPS THE PT TOLERATE BIPAP USAGE; SKIN WAS CLEANSED AND CREAM USED TO PROTECT FROM FURTHER BREAKDOWN; PT'S LONG TIME FRIEND STAYED THE NIGHT IN THE ROOM W/ DOG FOR COMFORT; PT IS ON 5 LPM NC BASELINE; PT USES BEDPAN, HOWEVER FREQUENTLY NEEDS LINEN CHANGE DUE TO INCONTINENCE; PT BECOMES AGITATED W/ REPOSITIONING AND HAS LIMITED ABILITY TO REPOSITION HERSELF IN BED; RESTING WELL BETWEEN TIMES OF CARE; WILL CONTINUE TO ASSESS AND MONITOR UNTIL HANDOFF TO DAY SHIFT RN.
--- NOTE | 2018-11-05 13:15 | NUR ---
0830 The pt this morning was asking for a cigarette. Her friend handed her an ink pen, and stated that holding something like that helps the patient to get over the urge of craving a cigarette. The pt attempted to smoke the pen, and then became a little irritated when she realized it was not a cigarette. She is sleepy, and confused. Her friend is at the bedside, reassuring her and assisting her with various things, such as setting up the meal tray. 1200 The pt became irritable, irrational and angry. States that she wants to go outside for "a breather". Her friend is telling her that she will NOT take her outside, and trying to convince the patient that it would not be a good idea for her to go outside, because she is in no condition for that. I also told the patient that she cannot go outside to smoke. The pt is quite confused. She told the charge Nurse that "You guys are keeping me here in the basement, and trying to use that machine to turn me into a man." She is adamantly refusing to wear the bipap. She is c/o back pain, so she was given NOrco for relief.
--- NOTE | 2018-11-05 13:33 | NUR ---
Spiritual care visit conducted. Patient is lying in bed and eating lunch with physician locums urgent care Beth gilbert. After several visits earlier this was the first visit in which the patient was alert enough for a conversation. Patient was all over the place in terms of topic and train of thought. Patient is able to articulate that she would love for me to pray for her. I gladly did so and patient voiced appreciation and appeared to be more at peace.
--- NOTE | 2018-11-05 14:22 | NUR ---
the pt has been refusing the bipap this morning. She is sleeping at this time in a semi-recumbent postion, lying on her left side in bed. Continuous oxymetry in place, reading spo2 of 96% while on 7 l/min oxymizer delivery.
--- NOTE | 2018-11-05 19:53 | NUR ---
PATIENT VERY IRRITABLE AND ANXIOUS; REPORTING SHE WANTS TO GO OUT TO SMOKE; SHE WANTS A CIGARETTE; STAFF CALLED DAUGHTER IN; DAUGHTER CALMS PATIENT DOWN; PATIENT REPORTS SHE WOULD "RATHER AT HOME" THEN BE HERE. PATIENT MEDICATED PER EMAR; PATIENT APPEARS TO BE CALMING DOWN.
[2018-11-05 21:04] LABS: PCO2 Arterial 64.9 mmHg (35-45); PO2 Arterial 52.6 mmHg (80-100); pH Blood Arterial 7.42 (7.35-7.45)
[2018-11-05 21:40] LABS: BASOPHILS ABSOLUTE AUTO 0.01 K/mm3 (0.00-0.23); BASOPHILS PERCENT AUTO 0 % (0-2); EOSINOPHILS PERCENT AUTO 0 % (0-6); Hematocrit 42.3 % (33.0-51.0); IMMATURE GRAN ABSOLUTE AUTO 0.08 K/mm3 (0.00-0.10); IMMATURE GRAN PERCENT AUTO 1 % (0-1); LYMPHOCYTES ABSOLUTE AUTO 0.57 K/mm3 (0.84-5.20); LYMPHOCYTES PERCENT AUTO 4 % (21-46); MONOCYTES ABSOLUTE AUTO 0.56 K/mm3 (0.16-1.47); MONOCYTES PERCENT AUTO 4 % (4-13); Mean Corpuscular HGB Conc 28.4 g/dL (31.5-36.5); Mean Corpuscular Volume 99 fL (80-100); Mean Platelet Volume 10.5 fL (9.1-12.4); NEUTROPHILS ABSOLUTE AUTO 12.38 K/mm3 (1.96-9.15); NEUTROPHILS PERCENT AUTO 91 % (41-73); Platelet Count 290 K/mm3 (150-400); RDW Coefficient Variation 16.1 % (11.7-14.2); RDW Standard Deviation 58.3 fL (35.1-46.3); Red Blood Cell Count 4.28 M/mm3 (3.80-5.20)
--- NOTE | 2018-11-06 01:54 | NUR ---
ASSUMED CARE OF PATIENT AT APPROXIMATELY 1905 FROM RASHID Lomeli RN. PATIENT CONFUSED; SAYING ODD STATEMENTS; DURING SHIFT REPORT PATIENT'S DAUGHTER APPROACHED AMILCAR AND STATED PATIENT IS "READY TO GO ON BIPAP WHENEVER WE HAVE A CHANCE". ATTEMPTED TO PLACE BIPAP AND PATIENT WOULD REVOME BIPAP AND OCCASIONALLY REMOVES OXYGEN. PATIENT ANXIOUS AND IRRITABLE; SECURITY WAS CALLED TO ROOM WHEN THIS RN WAS IN ANOTHER PATIENT'S ROOM. ATTEMPTED TO PLACE BIPAP MULTIPLE TIMES T/O THE NIGHT. PATIENT OXYGEN NEEDS HAS CHANGED THROUGHOUT THE NIGHT. PATIENT REQUIRED 12LPM VIA NC AT SHIFT CHANGE COMPARED TO 7 LAST NIGHT AND 9 DURING THE DAY. CALLED MEKA RYAN AT APPROX 2030; ORDERS RECIEVED. PATIENT'S DAUGHTER HAS BEEN IN AND OUT ALL NIGHT; REPORTS PATIENT ACTS SIMILIAR WHEN SHE IS ON STERIODS; REPORTS SHE CANNOT CARE FOR HER MOTHER WHEN SHE IS ON STERIODS. NSR ON TELE; OXYGEN SATURATION ABOVE 90% ON 7LPM. PATIENT HAS BEEN INCONTINENT OF URINE; ATTENDS IN PLACE. PATIENT'S FRIEND SLEEPING IN RECLINER AT BEDSIDE W/ DOG IN ROOM. PATIENT CURRENTLY RESTING IN BED; CALL LIGHT IN REACH; BED ALARM ON; BED IN LOWEST POSISTION; WILL CONTINUE TO MONITOR AND ASSESS UNTIL END OF SHIFT.
--- NOTE | 2018-11-06 06:31 | NUR ---
PATIENT SLEPT ABOUT NINE HOURS LAST NIGHT. PATIENT MORE ALERT THROUGH OUT THE MORNING; ABLE TO STATE LOCATION, NAME, . PATIENT INCONTINENT OF URINE. WILL CONTINUE TO MONITOR AND ASSESS UNTIL END OF SHIFT.
--- NOTE | 2018-11-06 12:59 | NUR ---
DR ALONZO TO ROOM, HE STATES THAT PATIENT IS UNABLE TO MAKE DECISIONS AT THIS TIME. CALLED PALLATIVE CARE TO BEDSIDE TO DISCUSS OPTIONS WITH DOCTOR AND THIS NURSE. DR ALONZO STATED SHE CAN BE PUT ON A PRECEDEX DRIP AND USE BIPAP IF INDICATED. PALLATIVE CARE AND DISTRICT LOSS PREVENTION MANAGER TO ROOM AND WILL WORK ON CONTACTING FAMILY TO COME TO DECISION, DR BELIEVES HOSPICE AND COMFORT CARE ARE APPRORPIATE.
--- NOTE | 2018-11-06 13:36 | NUR ---
RECEIVED REPORT AND ASSUMED CARE OF PATIENT. SHE IS VERY AGITATED AND ANGRY THIS MORNING AND WANTS TO GO OUTSIDE TO SMOKE WELL GO HOME. PT REFUSING BIPAP AND O2 LEVELS STAYING ABOVE 90% WITH 10 LPM WITH OXYIMZER. FRIEND AT BEDSIDE AND TRYING TO ASSIST IN CALMING PATIENT. THIS RN GOES INTO ROOM AND WITNESSES PATIENT TRYING TO LIGHT CIGARETTE CALLED ELEMENTARY SCHOOL REGISTRAR AND SECURITY TO ROOM. PT WILL NOT GIVE PURSE TO THIS NURSE. SECURITY REMOVED PURSE AND IT IS PLACED IN LOCKED CABINET OUTSIDE OF ROOM. ADMINISTERED ATIVAN 1 MG AT 0930 WITH SECURITY PRESENT. DISCUSSED CODE STATUS AND POC WITH FAMILY, BUT THEY WERE NOT OPEN TO DISCUSSION OF HOSPICE CARE AT THAT TIME (1000). PT HAS CONTINUED TO DECLINE WITH HER AIR HUNGER AND DECLINE IN ALERTNESS. SHE IS NOT ORIENTED TO HER SURROUNDINGS OR THE EVENTS THAT ARE HAPPENING. PT IS USING 12 LPM VIA OXYMIZER AT THIS TIME WITH 90% O2 SAT. ATTEMPTING TO CLIMB OUT OF BED. REPOSITIONED, PULLED UP IN BED AND APPLIED COOL CLOTHS TO FOREHEAD WELL 2 FANS BLOWING ON PATIENT FACE AT THIS TIME. SHE IS STARTING TO CALM SLIGHTLY. ASSISGNED STUDENT NURSE TO STAY IN ROOM WITH PATIENT. WILL CONTINUE TO MONITOR CLOSELY.
--- NOTE | 2018-11-06 14:12 | NUR ---
DR BRODERICK TO BEDSIDE TO SEE PATIENT. PT IS UNABLE TO INTERACT WITH DOCTOR AT THIS TIME, EVALUATES PATIENT AND RECOMMENDED THAT POC SHOULD BE ESTABLISHED TO DETERMINE CARE. EITHER PRECEDEX AND BIPAP IN ICU, OR MOVE TO COMFORT CARE TO PROVIDE ADDITIONAL THERAPIES TO KEEP PATIENT COMFORTABLE. CALLED PALLATIVE CARE RN STAN TO UPDATE AND SHE INFORMES THIS RN THAT SHE WILL CALL THE FAMILY AT THIS TIME. WILL CONTINUE TO MONITOR.
--- NOTE | 2018-11-06 15:40 | NUR ---
TRANSFER NURSING NOTE RECEIVED PT FROM PCU INTO ICU 4. AWAKE, ALERT, CONFUSED, FOLLOWING SOME COMMANDS. NOT KEEPING HER OXYMIZER TUBING ON AND PULLING OFF BIPAP MASK DESPITE REPEATED INSTRUCTIONS TO KEEP THE OXYGEN IN PLACE. STARTED PRECEDEX AT 0.5 MCG/KG/HR - 15.3 CC/HR, CURRENTLY ALLOWING THE OXYMIZER TO REMAIN IN PLACE WITH 7L O2 FLOW, SATS 96%, RR 21, LUNGS WITH RHONCHI THROUGHOUT. VSS. ST ON MONITOR, HR 115. DENIES CHEST PAIN AND PRESSURE. ATTENDS IN PLACE SOAKED WITH URINE, CHANGED ATTENDS, INSTRUCTED TO CALL FOR ASSISTANCE IN USING THE BEDPAN INSTEAD OF VOIDING IN THE ATTENDS, VERBALIZED AND DEMONSTRATED GOOD UNDERSTANDING, SOON I GAVE THE INSTRUCTION, PT STATED SHE NEEDED TO USE THE BEDPAN, VOIDED 300 CC CLOUDY DARK YELLOW URINE. PT'S BUTTOCKS/COCCYX AREA IS EXCORIATED, BARRIER CREAM USED FOR SKIN PROTECTION. POWERGLIDE TO PAULA INFUSING PRECEDEX AND NORMAL SALINE.
--- NOTE | 2018-11-06 18:35 | NUR ---
NURSING SUMMARY SLEEPING, WAKES EASILY TO VOICE, CONFUSED, PERIODS OF QUIET TO PERIODS OF YELLING/CUSSING/PULLING AT THE RESTRAINTS/REACHING FOR OXYMIZER TUBING AND IV TUBING. PRECEDEX INFUSING AT 0.7 MCG/KG/HR = 21.4 CC/HR. SR - ST ON MONITOR, HR 90'S - 120, BP WNL. LUNGS WITH RHONCHI/COARSE THROUGHOUT, DIMINISHED AT THE BASES, OXYMIZER AT 7L O2 FLOW, SATS 93-97%, WEANED OXYGEN DOWN FROM 12L TO 7L. OBESE, ABDOMENT DISTENDED, SOFT, NON-TENDER, NORMOACTIVE BOWEL SOUNDS ALL FOUR QUADRANTS, DID NOT OFFER DINNER THIS AFTERNOON DUE TO SLEEPINESS, CBG = 144. INCONTINENT OF URINE AT TIMES, INCONTINENT TWICE SINCE ARRIVAL IN ICU AT 1540. DID ASK FOR THE BEDPAN TWICE AND WAS ABLE TO VOID. FREQUENT/URGENT NEED TO VOID. ATTEMPTS TO REPOSITION PT CAUSE AGITATION, PT PREFERS TO LAY ON HER LEFT SIDE, WHEN REPOSITIONED TO RIGHT SIDE, PT MOVES AROUND TO REPOSITION SELF TO THE LEFT SIDE. POWERGLIDE TO PAULA INFUSING PRECEDEX AND NS AT TKO. IN THE PCU, PT ATTEMPTED TO LIGHT A CIGARETTE IN HER ROOM AND SECURITY HAD TO COME TO THE BEDSIDE DUE TO PT AGITATION/COMBATIVE BEHAVIOR WHEN NURSES ATTEMPTED TO PREVENT PT FROM LIGHTING THE CIGARETTE. PLAN: PALLIATIVE CARE ATTEMPTING TO GET IN TOUCH WITH PT'S DAUGHTER(S) FOR DIRECTION REGARDING GOING HOME ON HOSPICE.
--- NOTE | 2018-11-06 19:45 | NUR ---
ASSUMED CARE PT SLEEPING IN ROOM COMFORTABLY AT THIS TIME. REPORT TAKENF [facility] DAY SHIFT RN. PER DAY SHIFT PT WAS BROUGHT OVER FROM PCU FOR INCREASING CONFUSION AND AGGITATION. PT WAS PLACED ON PRECIDEX GTT FOR THE AGGITATION, PT WAS PULLING AT OXYGEN AND ALL WIRES AND TUBES, CAUSING PT TO DESAT. PT WAS ALSO PLACED IN BILAT WRIST RESTRAINTS D/T TAKING SWINGS AT STAFF AND ATTEMPTING TO KICK STAFF. RESP IS EVEN UNLABORED BUT SHALLOW ON 12L OXIMIZER AT THIS TIME. SATS 89-92%. PRECIDEX AND NS INF IN POWERGLIDE TO [facility], SITE WNL. BILAT WRIST RESTRAINTS IN PLACE AND WNL. SKIN INTACT AND CAP REFIL <3 SEC. BED ALARM ON FOR SAFETY. BED IN LOW POSITION.
[2018-11-07 00:54] LABS: Source, Urine Catheter
[2018-11-07 00:55] LABS: Bilirubin, Urine Neg (Neg); Blood, Urine 1+ (Neg); Glucose Qualitative, Urine Neg (Neg); Ketones, Urine Neg (Neg); Leukocyte Esterase, Urine Neg (Neg); Nitrite, Urine Neg (Neg); Protein, Urine 2+ (Neg); Specific Gravity, Urine 1.005 (1.003-1.022); Urobilinogen, Urine NORM (Normal); pH, Urine 6.5 (5.0-8.0)
[2018-11-07 01:09] LABS: Appearance, Urine Hazy (Clear); Color, Urine Yellow (P-Yellow)
[2018-11-07 01:10] LABS: Amorphous Mod (0-Heavy); Bacteria Few /hpf; Squamous Epithelial Cells Mod /hpf (Few); White Blood Cells, Urine Rare /hpf (0-5)
[2018-11-07 03:25] LABS: Base Excess Venous 17.3 mmol/L; Bicarbonate Venous 37.8 mmol/L (24.0-30.0); PCO2 Venous 60.6 mmHg (38-42); PO2 Venous 35.8 mmHg (38-42); pH Blood Venous 7.44 (7.34-7.37)
[2018-11-07 03:43] LABS: BASOPHILS ABSOLUTE AUTO 0.01 K/mm3 (0.00-0.23); BASOPHILS PERCENT AUTO 0 % (0-2); EOSINOPHILS ABSOLUTE AUTO 0.03 K/mm3 (0.00-0.68); EOSINOPHILS PERCENT AUTO 0 % (0-6); Hematocrit 42.2 % (33.0-51.0); Hemoglobin 12.2 g/dL (11.5-16.0); IMMATURE GRAN ABSOLUTE AUTO 0.03 K/mm3 (0.00-0.10); IMMATURE GRAN PERCENT AUTO 0 % (0-1); LYMPHOCYTES ABSOLUTE AUTO 1.73 K/mm3 (0.84-5.20); LYMPHOCYTES PERCENT AUTO 17 % (21-46); MONOCYTES ABSOLUTE AUTO 0.74 K/mm3 (0.16-1.47); MONOCYTES PERCENT AUTO 7 % (4-13); Mean Corpuscular HGB Conc 28.9 g/dL (31.5-36.5); Mean Corpuscular Volume 97 fL (80-100); Mean Platelet Volume 10.3 fL (9.1-12.4); NEUTROPHILS ABSOLUTE AUTO 7.97 K/mm3 (1.96-9.15); NEUTROPHILS PERCENT AUTO 76 % (41-73); Platelet Count 239 K/mm3 (150-400); RDW Coefficient Variation 16.1 % (11.7-14.2); RDW Standard Deviation 57.5 fL (35.1-46.3); Red Blood Cell Count 4.35 M/mm3 (3.80-5.20); White Blood Cell Count 10.51 K/mm3 (4.00-11.30)
[2018-11-07 04:03] LABS: Anion Gap 1 mmol/L (6-16); Blood Urea Nitrogen 18 mg/dL (8-24); Bun/Creatinine Ratio 28.2 (12.0-20.0); CO2, Blood 39 mmol/L (21-32); Calcium, Blood 8.7 mg/dL (8.5-10.1); Chloride, Blood 102 mmol/L (98-108); Creatinine, Blood 0.64 mg/dL (0.40-1.00); Glomerular Filtration Rate >60 (60-); Glucose, Blood 114 mg/dL (70-99); Potassium, Blood 4.3 mmol/L (3.5-5.5); Sodium, Blood 142 mmol/L (136-145)
--- NOTE | 2018-11-07 06:05 | NUR ---
SHIFT SUMMARY PT SLEEPING IN ROOM COMFORTABLY AT THIS TIME. PT HAD SEVERAL CHANGES IN STATUS T/O NIGHT. EKG CHANGES WERE NOTED BY TALENT DEVELOPMENT DIRECTOR. CHANGES IN MEDICATIONS WERE MADE AND NEW EKG WAS OBTAINED. LOPEZ CATH WAS PLACED DUE TO PT BEING UNABLE TO REPORT WHEN NEED FOR BEDPAN, AND INABILITY TO TRACK ACCURATE I/O'S. PT WAS INCREASINGLY AGGITATED T/O NIGHT. PRECIDEX GTT CONTINUED TO INF AT 0.7MCG/KG/HR. PT REQUIRED MEDICATIONS FOR INCREASED AGGITATION ON TOP OF PRECIDEX. PT 02 SATS DECREASED W/ AGGITATION. PT TITRATED UP TO 10L W/ AGGITATION, BACK DOWN TO 8L OXIMIZER W/ REST SATS >92%. PT CONTINUES TO BE CONFUSED, WRIST RESTRAINTS IN PLACE FOR INCREASED AGGITATION. PT PULLS AT O2 AND MONITOR LINES WHEN WRISTS ARE NOT RESTRAINED. RESP EVEN UNLABORED BUT SHALLOW ON 8L OXIMIXER. CALL LIGHT IS WITHIN REACH OF PT. BED ALARM ON FOR SAFETY.
--- NOTE | 2018-11-07 10:32 | NUR ---
NURSING ICU DAYSHIFT: Assumed care of pt at approx 0700. Disoriented and impulsive. Difficult to redirect, mumbles incoherently, only able to answer very basic yes/no questions. Skin has scattered bruising and small scabs, redness to folds, LE's cool and mottled. B/L soft wrist restraints in place d/t pt's impulsiveness and attempts to pull on lines. Caridac monitoring in place, SR, hypertensive, mild trace dependent edema. L/S w/rhonchi in mid/upper lobes, fine crackles noted to RLL though poss infiltrate reported in LLL, LLL difficult to assess d/t positioning, O2 sat upper 80's to low 90's on 8L oxy at time of initial assessment, respirations labored and uneven, grunting at times. Abd mildly distended, soft w/palp, BT+, FC w/stat lock in place, draining well. PG present in RUE, NS TKO, precedex gtt infusing at 0.7 mcg/kg/hr. Respiratory status fragile t/o the a.m. RT at bedside for breathing tx and assessment, changed to HF NC. Sat declined to mid 70's, O2 increased to 15L w/only minimal improvement noted, placed on bipap. Seen by metal drill press operator and PMD, new d/o received. Friend/roommate and daughter at bedside, update provided by care staff, plan of care discussed w/metal drill press operator followed up w/discussion with palliative care. Pt remains DNR/DNI at this time. Cont to monitor for any changes.
--- NOTE | 2018-11-07 17:14 | NUR ---
NURSING ICU DAYSHIFT SUMMARY: Respiratory status remains fragile. Able to tolerate short bipap break while on HF NC at 15L. Pt placed back on bipap when O2 began to maintain low 80's. Friends family at bedside t/o majority of the shift, had several discussions regarding stimulus reduction for respiratory stability and agitation reduction, verbalized understanding though frequent reminders required. Precedex gtt continues to infuse at 0.7 mcg/kg/hr, BP and HR stable. Personal care completed, tolerated well. Lights remain low, fans in place for pt comfort, repositioned t/o the shift. Cont to monitor until rpt is given to NOC RN.
--- NOTE | 2018-11-07 19:30 | NUR ---
ASSUMED CARE PT RESTING IN ROOM COMFORTABLY AT THIS TIME. PER DAY SHIFT PT REMAINED CONFUSED AND COBMATIVE, NANCY VEST WAS ADDEDD TO BILAT SOFT WRIST RESTRAINTS D/T PT CONTINUALLY ATTEMPTING TO GET OUT OF BED. PT ROM IS GOOD AND CIRCULATION AND SKIN ALL WNL. PER DAY SHIFT PT HAS HAD PERIODS OF VERBAL ABUSE TOWARDS STAFF. PT HAD MOMENTS OF BEING ALERT TO PLACE, EVENT, AND SELF, BUT THEN BECOMES CONFUSED AGAIN EASILY. RESP EVEN UNLABORED ON RA W/ SATS >95%. PT TOOK O2 OFF AND STS "I DONT NEED IT I BREATHE JUST FINE." PT EDUCATED THAT O2 COULD REMAIN OFF AT THIS TIME BUT WOULD BE PUT BACK IN PLACE IF SATS DROPPED. PT REPORTS UNDERSTANDING AT THIS TIME. CIWS SCORES PER DAY SHIFT RANGED FROM 14-20. PT AMMONIA LEVELS CONTINUE TO BE HIGH. LACTULOSE ENEMA TO BE ATTEMPTED AFTER SHIFT CHANGE. CALL LIGHT IN REACH. BED ALARM ON FOR SAFETY.
--- NOTE | 2018-11-07 19:45 | NUR ---
ASSUMED CARE PT RESTING IN ROOM AGGITATED AT THIS TIME. PER DAY SHIFT PT HAD HAD PERIODS OF CONFUSION AND ALERTNESS. PT SATS DROPPED INTO 70'S THIS AM AND PT WAS PLACED ON BIPAP AND MEDICATED TO TOLERATE MASK PER EMAR. PT HAS HAD SEVERAL SHORT BREAKS FROM BIPAP MASK IN WHICH SATS HAVE DROPPED CONSIDERABLY. PT IN ROOM AGGITATED AT THIS TIME WITH BIPAP, WILL MEDICATE FOR ANXIETY PER EMAR. RESP TACHYPNIC AND SHALLOW. SATS 90% ON BIPAP. PT REMAINS IN BILAT SOFT WRIST RESTRAINTS D/T PT CONTINUALLY ATTEMPTING TO PULL OFF O2 AND MONITOR WIRES. FAMILY NOW COMING IN AT BEDSIDE TO SIT W/ PT. CALL LIGHT IN REACH. BED ALARM ON.
--- NOTE | 2018-11-07 20:15 | NUR ---
FAMILY REQUESTING PAL CARE RN CONVERSATION YANETH RN TO COME IN AND SPOEAK WITH FAMILY ABOUT PALATIVE CARE, AND POSSIBLY TRANSITIONING PT TO COMFORT CARE. ALL THREE PT'S DAUGHTERS IN ROOM AND WANTING TO TALK WITH PAL CARE RN.
--- NOTE | 2018-11-07 20:20 | NUR ---
Multiple visit with family today to discuss plan of care and pt needs. will meet with them this evening. pamplets given on end of life and grief support
--- NOTE | 2018-11-07 21:30 | NUR ---
RESTRAINTS REMOVED PT FAMILY MEMBERS BACK FROM DISCUSSION WITH PAL JANETH WOLFE. PER YANETH PT'S FAMILY AGREED TO MOVE PT TO COMFORT CARE STATUS. FAMILY IN ROOM W/ PT AT THIS TIME. RESTRAINTS REMOVED FOR PT TO INTERACT W/ FAMILY BETTER. BIPAP MASK REMOVED AND PT PLACED BACL ON HI-FLOW NC TO BE ABLE TO TALK W/ FAMILY.
[2018-11-08 03:49] LABS: BASOPHILS ABSOLUTE AUTO 0.01 K/mm3 (0.00-0.23); BASOPHILS PERCENT AUTO 0 % (0-2); EOSINOPHILS ABSOLUTE AUTO 0.07 K/mm3 (0.00-0.68); EOSINOPHILS PERCENT AUTO 1 % (0-6); Hematocrit 41.8 % (33.0-51.0); Hemoglobin 12.5 g/dL (11.5-16.0); IMMATURE GRAN ABSOLUTE AUTO 0.05 K/mm3 (0.00-0.10); IMMATURE GRAN PERCENT AUTO 0 % (0-1); LYMPHOCYTES ABSOLUTE AUTO 0.65 K/mm3 (0.84-5.20); LYMPHOCYTES PERCENT AUTO 6 % (21-46); MONOCYTES ABSOLUTE AUTO 0.17 K/mm3 (0.16-1.47); MONOCYTES PERCENT AUTO 2 % (4-13); Mean Corpuscular HGB 28.3 pg (26.0-34.0); Mean Corpuscular HGB Conc 29.9 g/dL (31.5-36.5); Mean Corpuscular Volume 95 fL (80-100); Mean Platelet Volume 10.7 fL (9.1-12.4); NEUTROPHILS PERCENT AUTO 92 % (41-73); Platelet Count 225 K/mm3 (150-400); RDW Coefficient Variation 15.7 % (11.7-14.2); RDW Standard Deviation 54.9 fL (35.1-46.3); Red Blood Cell Count 4.41 M/mm3 (3.80-5.20); White Blood Cell Count 11.65 K/mm3 (4.00-11.30)
[2018-11-08 03:55] LABS: Base Excess Venous 17.5 mmol/L; Bicarbonate Venous 38.2 mmol/L (24.0-30.0); PCO2 Venous 60.5 mmHg (38-42); PO2 Venous 47.3 mmHg (38-42); pH Blood Venous 7.45 (7.34-7.37)
[2018-11-08 04:10] LABS: Anion Gap 3 mmol/L (6-16); Blood Urea Nitrogen 15 mg/dL (8-24); Bun/Creatinine Ratio 24.6 (12.0-20.0); CO2, Blood 40 mmol/L (21-32); Calcium, Blood 8.7 mg/dL (8.5-10.1); Chloride, Blood 96 mmol/L (98-108); Creatinine, Blood 0.61 mg/dL (0.40-1.00); Glomerular Filtration Rate >60 (60-); Glucose, Blood 130 mg/dL (70-99); Sodium, Blood 139 mmol/L (136-145)
--- NOTE | 2018-11-08 06:18 | NUR ---
SHIFT SUMMARY PT SLEEPING IN ROOM COMFORTABLY AT THIS TIME. FAMILY AT BEDSIDE. TX HAD SOME CHANGES IN STATUS T/O NIGHT. PT WAS REMOVED FROM WRISTS RESTRAINTS D/T PT BEING AOX3 AND MORE EASILY REDIRECTABLE. PT AND FAMILY DISCUSSED MOVING TO COMFORT CARE THIS AM. PT RESP CURRENTLY SHALLOW AND RAPID W/ SATS 89-91% ON 15L NRB. PT WORE BIPAP EARLY IN SHIFT BUT HAS REFUSED TO WEAR IT SINCE 2199. PT HAS REQUIRED MEDICATING PER EMAR FOR ANXIETY. PT HAD MULTIPLE FAMILY MEMBERS VISITING LATE INTO AM OF THE SHIFT AND DID NOT SLEEP MUCH/WELL. DENIED PAIN T/O NIGHT. EKG AND CXR DONE THIS AM, PT TOLERATED FAIR. PT TWO DAUGHTERS SLEEPING IN ROOM W/ PT AND PT ROOMATE ASLEEP IN CHAIR IN ROOM WELL. PT LESS AGGITATED WHEN FAMILY IS NEARBY. PRECIDEX GTT INFUSING W/ TKO NS IN POWERGLIDE TO PAULA. CALL LIGHT IS WITHIN REACH. BED ALARM ON FOR SAFETY.
--- NOTE | 2018-11-08 08:19 | NUR ---
RECEIVED REPORT AND ASSUMED CARE OF PATIENT. SHE IS LEANING TO HER LEFT SIDE AND SLEEPING AT TIME OF SHIFT CHANGE. PT IS ON NRB AT 15 LPM. PT TAKES MASK OFF PERIODICALLY TO SPEAK, SHE QUICKLY DESATURATES WITHOUT THE O2. PT SPEAKS, HOWEVER SPEECH IS NONSENSICAL, SHE DOES STATE SHE WANTS TO GO HOME. PRECEDEX IS RUNNING AT 0.5 MCG/KG/HR WITH NS TKO AT 25 ML/HR. PT IS ANXIOUS AT THIS TIME. WILL MEDICATE PER EMAR.
--- NOTE | 2018-11-08 09:16 | NUR ---
PT HAS COMPLAINT OF GENERALIZED PAIN, SHE HAD REFUSED HER ORAL MEDICATIONS DUE TO NOT FEELING UP TO SWALLOWING. SHE WANTED TO TRY TO SWALLOW PAIN MED. ADMINISTERED PER EMAR AND WILL WORK WITH FAMILY TO TRANSFER TO COMFORT CARE FOR ADDITIONAL MEDICATION OPTIONS TO KEEP THE PATIENT COMFORTABLE. CALLED YANETH VIVAS TO UPDATE WITH CASE. AWAITING FAMILY RETURN TO ROOM.
--- NOTE | 2018-11-08 10:17 | NUR ---
PT FAMILY TO BEDSIDE. PT CONTINUES TO PULL OFF THE NRB MASK. WHEN THIS NURSE ENTERS THE ROOM O2 SAT AT 70%. ENCOURAGED DEEP BREATHING AND TIGHTENED MASK. WILL CONTINUE TO MONITOR CLOSELY.
--- NOTE | 2018-11-08 12:05 | NUR ---
SOULEYMANEUGHERS AT BEDSIDE DISCUSS WITH THIS NURSE THEIR DESIRE TO MOVE FORWARD WITH TRANSFERRING PATIENT TO COMFORT CARE. DR. BRODERICK AT BEDSIDE TO CONFIRM WITH FAMILY AND ANSWER QUESTIONS R/T THIS TRANSFER IN HER POC. DR SUGGESTED THAT LIQUOR CLERK BE CONSULTED TO ASSIST IN HELPING FAMILY TRANSITION TO HOME OR FACILITY WITH HOSPICE. WILL CONTINUE TO MONITOR AND DISCONNECT MONITORING PER COMFORT ORDER SET. PT EXPRESSED RELIEF IN GETTING WIRES AND CORDS OFF OF HER. WILL CONTINUE TO MONITOR PT AND FOLLOW ORDERS.
--- NOTE | 2018-11-08 12:36 | NUR ---
GAVE REPORT TO MEDICAL FLOOR RN TO TRANSFER PATIENT TO ROOM 364.
--- NOTE | 2018-11-08 16:26 | NUR ---
PATIENT A&O TO SELF AND FAMILY. NONREBREATHER MASK ON @ 15L. PATIENT CONTINUE TO PULL MASK OFF AND REFUSES TO PUT ON AT TIMES. APPEARS VERY ANXIOUS, RN MEDICATED FOR PAIN, ANXIETY, AND AIR HUNGER PER E MAR. FAMILY IS AT THE BEDSIDE. WILL CONTINUE TO MONITOR.
--- NOTE | 2018-11-08 18:31 | NUR ---
SHIFT SUMMARY PATIENT A&O TO SELF AND FAMILY. COMFORT CARE ASSESSMENTS Q2 HOURS. REPOSITIONED PATIENT PRN PER PATIENT REQUEST, SHE ONLY WANTS TO LAY ON ONE SIDE FOR COMFORT. OXIMIZER ON 15 L, PATIENT PULLS OFF THROUGHOUT THE SHIFT. MEDICATED FOR PAIN, ANXIETY, AND AIR HUNGER THROUGHOUT THE SHIFT. LOPEZ PATENT AND DRAINING. FAMILY AT THE BEDSIDE. RN WILL CONTINUE TO MONITOR.
--- NOTE | 2018-11-08 23:41 | NUR ---
ADDRESSED FAMILY'S CONCERNS REGARDING COMFORT CARE AND COMFORT CARE MEDICATIONS AND WHEN THEY WOULD BE GIVEN. AT THIS TIME PT APPEARS COMFORTABLE AND NOT IN DISTRESS. FAMILY WOULD LIKE TO BE INVOLVED IN THEIR LOVED ONE'S CARE MUCH POSSIBLE AND USING THE CALL LT FOR MEDICATIONS.
--- NOTE | 2018-11-09 01:47 | NUR ---
11/08/18 2100 PT C/O SEVERE RT AND LEFT HIP PAIN AT LEVEL "8". SEE MAR FOR MED GIVEN. ENCOURAGED TO TURN TO OTHER SIDE BUT REFUSED FOR NOW. VISITING WITH FAMILY, FRIEND AND SERVICE DOG. O2 AT 15 LPM VIA OXIMIZER.
--- NOTE | 2018-11-09 02:00 | NUR ---
11/08/18 0200 PT SLEEPING LYING ON LEFT SIDE. DAUGHTER IN BED WITH HER AND SLEEPING. NO DISTRESS NOTED.
--- NOTE | 2018-11-09 07:31 | NUR ---
11/09/18 0600 PT AND FAMILY HAVE BEEN SLEEPING WELL LAST HALF OF SHIFT. O2 AT 15 LPM VIA OXIMIZER. PERIODS OF SOB AND ANXIETY. RESPONDS WELL TO FAMILY INTERVENTION AND SERVICE DOG THIS SHIFT. SEE COMFORT CARE CHECKS.
--- NOTE | 2018-11-09 10:35 | NUR ---
Met with Justin and her niece this morning. Justin is sitting up at the bedside chair and just ate breakfast. She removes her O2 at times and is easily redirected to put her O2 back on. Justin denies pain and SOB although she appears to be working at breathe. Her niece states that she just ate breakfast and that her SOB is d/t her eating. Justin denies need for medication for SOB at this time. Justin is requesting "a pill to poop." She reports no BM in several days. Spoke with Dr. Payne and rec'd new orders for bowel care. Returned to pt room and she requested to get onto BSC to have a BM. Pt is a standby min assist from chair to BSC. Lg soft formed BM. Sheila care given. Pt transferred back to chair with min SB assist. Pt's niece states family would like to have [facility] when they go home. Justin states she would like to go home as soon as possible. Pamphlet for [facility] given to pt's niece per her request. CM notified on pt's choice for [facility]. Niece states pt has some euipment at home. Will have CM meet with pt's dtr when she returns to make arrangements for equipment and discharge with hospice.
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
--- NOTE | 2018-11-09 18:45 | NUR ---
NO COMPLAINTS AT THIS TIME.
--- NOTE | 2018-11-09 19:29 | NUR ---
Review of pt dischareg difficulties with care managers this am and families difficuties with implementing a plan
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
--- NOTE | 2018-11-09 19:45 | NUR ---
SHE HAS HAD COMPLAINTS TODAY OF H/A, PAIN WHEN SHE VOIDS THROUGH THE CATHETER, WANTING TO SMOKE, CAN'T BREATHE IN ANY POSITION EXCEPT ON HER L SIDE. L ELBOW VERY RED. FOAM PATCH REPLACED AND ELBOW PROTECTOR PUT IN PLACE. SHE HAD A FALL TODAY. NO INJURY. HAS BEEN NOTIFIED. SHE HAS HAD SMALL BM'S TODAY.
--- NOTE | 2018-11-10 05:29 | NUR ---
MARKETING DEVELOPMENT REPRESENTATIVE SUMMARY NO ACUTE CHANGES THIS SHIFT. PT AAOX4 AND COOPERATIVE WITH CARE. REMAINS ON COMFORT CARE. ON 8L HIGH FLOW O2, SOB ON EXERTION. PT HAS BEEN ABLE TO GET UP TO WHEELCHAIR AND BSC WITH 1 PERSON ASSIST. PT HAD EXTRA LARGE BM TONIGHT AFTER STARTING ON COLACE THIS EVENING. TREATED FOR PAIN X1 WITH NORCO. NO OTHER COMPLAINTS. WILL CONTINUE TO MONITOR.
--- NOTE | 2018-11-10 10:22 | NUR ---
SHE IS UP IN THE CHAIR EATING BREAKFAST. 1 VISITOR WITH HER AND THE BIG DOG. NO COMPLAINTS AT THIS TIME.
--- NOTE | 2018-11-10 10:23 | NUR ---
SHE IS SITTING IN THE RECLINER CHAIR NOW. SHE RECENTLY WENT OUTSIDE IN HER W/C WITH HER VISITOR. SHE DENIES SMOKING. NICOTINE PATCH ON. JESSICA LEIJA DC'D PER HER REQUEST BECAUSE OF ALL THE DISCOMFORT SHE WAS HAVING WITH IT. SHE SAYS SHE WILL BE ABLE TO TRANSFER WITH HELP UP TO THE [facility] TO VOID. SHE HAS SEVERAL FAMILY MEMBERS IN THE ROOM NOW.
--- NOTE | 2018-11-10 13:54 | NUR ---
LOTS OF FAMILY PRESENT. THEY ALL WANT TO GO DOWNSTAIRS, INCLUDING GRACE.
--- NOTE | 2018-11-10 13:57 | NUR ---
SHE HAS BEEN INCONTINENT OF URINE AND VOIDED IN THE TOILET. NO MORE COMPLAINTS ABOUT PAIN IN HER VAGINAL AREA. SHE STILL WEARS ELBOW PROTECTORS. A LARGER SIZE WAS PUT ON THIS MORNING. SHE AND FAMILY WERE GONE FOR 1 1/2 HRS. SHE SAID CAFETERIA AND OUTSIDE. I LET HER KNOW THAT SHE IS NOT TO BE GONE FROM HER ROOM MORE THAN AN HOUR D/T HOSPITAL POLICY. SHE SAID OKAY.
--- NOTE | 2018-11-10 19:02 | NUR ---
HAS RECEIVED TYLENOL AND ATIVAN TODAY. NO CHANGES.
--- NOTE | 2018-11-10 21:49 | NUR ---
2100 PT WAS OFF UNIT WITH DAUGHTER FOR 2 1/2 HOURS AND WAS ADVISED BY THIS NURSE THAT IS UNSATISFACTORY AND TO PLEASE LIMIT TIME 45 MINUTES MAXIMUM. PTS DAUGHTER FROM [facility] AT SIDE ALONG WITH HALF SISTER WHOM HAS IDENTIFIED HERSELF PRIMARY CAREGIVER IN HOME. PT APPEARS TO BE SLIGHTLY FORGETFUL AT TIMES DURING ASSESSMENT AND REQUIRES REMINDERS OF SURROUNDINGS. PT VOICED SHE WANTS TO BE ABLE RETURN HOME AND THEN TO CHOOSE WHAT AFC OR HOME SHE WILL LIVE IN AND TO ALSO RETURN TO LOCAL EMERGENCY ROOM OFTEN SHE PLEASES. PTS GOALS ARE UNREALISTIC REGARDING CURRENT SITUATION TO RETURN ER OFTEN PLEASES. THIS NURSE PROVIDED LISTENING EAR DURING ASSESSMENT.
--- NOTE | 2018-11-11 04:10 | NUR ---
SHIFT SUMMARY: 67 Y/O OBESE FEMALE ON COMFORT CARE. PT WENT OUTSIDE TO SMOKE X 2 TIMES LAST PM AND AGREED TO STAY GONE NO LONGER THAN 45 MINUTES WITH HALF SISTER AT SIDE. PT WORE O2 AT 8L/M PER NASAL CANNULA. PT IS ON COMFORT CARE. PT ALERT AND ORIENTED X 3 AND REQUIRES 100% ASSISTANCE WITH ALL ADLS/IADLS. PT UNABLE TO PERFORM ANY ADLS WITHOUT INCREASED DYSPNEA NOTED WHICH RESOLVES WITH REST. PT EDUCATED BY THIS NURSE TO REMOVE OXYGEN WHEN SMOKING TO AVOID SETTING SELF ON FIRE WITH ACKNOWLEDGEMENT NOTED. PT SLEPT BEDSIDE CHAIR ALL NIGHT. PT HAD NO ANXIETY, PAIN OR NAUSEA. PTS BED LOW POSITION, CALL LIGHT AT SIDE. PTS CG FROM HOME SPENT NIGHT AT SIDE.
--- NOTE | 2018-11-11 10:02 | NUR ---
PT UP IN W/C FAMILY WHEELED PT OUTSIDE FOR APPROX 30MINS THIS A.M. APPEARS IN NO ACUTE DISTRESS. ATE BREAKFAST. PLEASANT COOPERATIVE TALKING WITH FAMILY IN ROOM. HOUSE KEEPING CALLED FOR A DAILY CLEANING. PREPARING PT TO TAKE SHOWER AT THIS TIME.
--- NOTE | 2018-11-11 11:17 | NUR ---
Pt visit this AM. Pt's sister and daughter present during visit. Pt and family asks questions regarding hospice choice and equipment they will receive. Pt appears mildly anxious and mildly dyspneic. Family begins to expresses frustrations with each other and daughter leaves Pt's room. Answered questions and offered solutions to frustrations. [facility] arrives and this RN offered to leave but family requests for this RN to stay. [facility] answers questions and addresses concerns. At this time family chooses [facility]. Reported to Dr Mendoza of Pt and family's decision. Dr Mendoza reports that she will discharge Pt home with hospice. Reported to prompt care rn Janet of decision. Jnaet will coordinate with discharge plan. Family report no concerns. Palliative Care will remain available.
--- NOTE | 2018-11-11 14:58 | NUR ---
FAMILY IN ROOM; PT AND FAMILY TALKING WITH HOSPICE AND PALLIATIVE CARE.
[2018-11-11] MEDS ORDERED: DOCU100 PO (15:16)
--- NOTE | 2018-11-11 19:44 | NUR ---
DISCHARGE NOTE: PT DISCHARGED HOME VIA PERSONAL WHEELCHAIR WITH [facility]. ALL PERSONAL BELONGINGS SENT HOME WITH FAMILY AT SIDE.
== END 2018-11-11 19:40 | disposition hospice, home (50) | DRG 189 ==
LOC: ER 15:59 → PCU 18:14 → ICUE 11-06 15:38 → MEDS 11-08 12:53 → ENPENDDIS 11-11 12:49 → MEDS 11-11 19:40
PROVIDERS: Emergency Medicine; Internal Medicine; Internal Medicine Critical Care Medicine; Nurse Practitioner Acute Care; ADMIT Family Medicine
PROC: 5A09357 Assistance with Respiratory Ventilation, Less than 24 Consecutive Hours, Continuous Positive Airway Pressure (ICD-10-PCS; principal; 2018-11-02)
DX: J96.21 Acute and chronic respiratory failure with hypoxia (principal); G93.41 Metabolic encephalopathy; I50.33 Acute on chronic diastolic (congestive) heart failure; I21.A1 Myocardial infarction type 2; E87.2 Acidosis; J84.9 Interstitial pulmonary disease, unspecified; Z68.43 Body mass index [BMI] 50.0-59.9, adult; J44.1 Chronic obstructive pulmonary disease with (acute) exacerbation; I50.32 Chronic diastolic (congestive) heart failure; E66.2 Morbid (severe) obesity with alveolar hypoventilation; M19.90 Unspecified osteoarthritis, unspecified site; J96.22 Acute and chronic respiratory failure with hypercapnia; E78.00 Pure hypercholesterolemia, unspecified; K21.9 Gastro-esophageal reflux disease without esophagitis; Z66 Do not resuscitate; F43.10 Post-traumatic stress disorder, unspecified; Z91.19 Patient's noncompliance with other medical treatment and regimen; R45.1 Restlessness and agitation; F17.210 Nicotine dependence, cigarettes, uncomplicated; I27.20 Pulmonary hypertension, unspecified; Z51.5 Encounter for palliative care; E11.42 Type 2 diabetes mellitus with diabetic polyneuropathy; I11.0 Hypertensive heart disease with heart failure; Z79.84 Long term (current) use of oral hypoglycemic drugs
CPT/HCPCS: 36415; 36600; 51703; 71045; 80048; 80053; 81001; 82803; 82947; 83605; 83735; 83880; 84145; 84484; 85025; 85027; 87040; 87486; 87581; 87633; 87798; 93005; 93010; 93308; 93321; 94640; 94660; 94762; 96361; 96374; 96375; 99285-25; A9270-GY; C1751; J0456; J0696; J1170; J1630; J1650; J1940; J2060; J2270; J2310; J2405; J2920; J2930; J7030; J7050; J7120; J7512